=== PATIENT | female | born 1990 | race Caucasian/White ===

== ENCOUNTER 2016-10-21 21:20 | Emergency (ER) | payer MEDICAID, OTHER ==
[2016-10-21 21:37] VITALS: BP 110/65
--- NOTE | 2016-10-21 21:50 | UC ---
Respiratory Complaint HPI - HPI Summary HPI Summary: The patient comes in today for: 1. Cough, sinus pressure/frontal sinuses, rhinitis Onset: 2 days ago. Palliative/provocative: [id number] medications. Quality: Ache Region: Frontal sinuses Severity: 5/10 Time: Constant. Associated symptoms: Cough: productive of green material Rhinitis: Green FEver: No temperature taken. Upper tooth pain: NOne. Chest pain: Only with coughing. Dyspena: None. * - History of Current Complaint Chief Complaint: UCRespiratory Stated Complaint: resp complaint Time Seen by Provider: 10/21/16 21:25 Hx Obtained From: Patient Hx Last Menstrual Period: on birthcontrol-explanon ?: No - Allergies/Home Medications Allergies/Adverse Reactions: Allergies Allergy/AdvReac Type Severity Reaction Status Date / Time Estrogens Allergy Severe See Comment Verified 10/21/16 21:39 Ketorolac Tromethamine Allergy Severe FACIAL Verified 03/27/16 15:15 [From Toradol] REDNESS Amoxicillin [From Augmentin] Allergy Intermediate Rash Verified 10/21/16 21:39 Clavulanic Acid Allergy Intermediate Rash Verified 10/21/16 21:39 [From Augmentin] Codeine AdvReac Mild NIGHTMARES Verified 10/21/16 21:39 Doxycycline AdvReac GI Upset Verified 10/21/16 21:39 hot sauce Allergy Severe "eats skin" Uncoded 10/21/16 21:39 SAUSAGE Allergy Severe THROAT Uncoded 10/21/16 21:39 FEELS LIKE IT CLOSES PMH/Surg Hx/FS Hx/Imm Hx Previously Healthy: No - Hair loss/on spironolactone Endocrine History Of: Denies: Diabetes, Thyroid Disease, Hyperthyroidism, Hypothyroidism, Dyslipidemia Cardiovascular History Of: Denies: Cardiac Disorders, Hypertension, Pacemaker/ICD, Myocardial Infarction , Congestive Heart Failure, Atrial Fibrillation, Deep Vein Thrombosis, Bleeding Disorders Respiratory History Of: Reports: Asthma - As a child Denies: COPD, Bronchitis, Pneumonia, Pulmonary Embolism GI/ History Of: Denies: Gastroesophageal Reflux, Ulcer, Gastrointestinal Bleed, Gall Bladder Disease, Kidney Stones, Diverticulitis, Renal Disease, Urosepsis Neurological History Of: Reports: Seizures - as a child, not on meds Denies: TIA, CVA, Dementia, Migraine Psychological History Of: Reports: Anxiety, Depression Denies: Bipolar Disorder, Schizophrenia, Post Traumatic Stress Disorder Cancer History Of: Denies: Lung Cancer, Colorectal Cancer, Breast Cancer, Prostate Cancer, Cervical Cancer Other History Of: Negative For: HIV, Hepatitis B, Hepatitis C, Anticoagulant Therapy - Surgical History Surgical History: Yes Surgery Procedure, Year, and Place: 13 melanoma scares biopsies; left foot repairs - Family History Known Family History: Positive: Hypertension Negative: Cardiac Disease - Social History Occupation: Employed Full-time Alcohol Use: Rare Substance Use Type: None Smoking Status (MU): Current Every Day Smoker Type: Cigarettes Amount Used/How Often: 10 cigs daily Length of Time of Smoking/Using Tobacco: 11 YEARS Have You Smoked in the Last Year: Yes Review of Systems Constitutional: Negative Skin: Negative Eyes: Negative ENT: Nasal Discharge Respiratory: Cough Cardiovascular: Chest Pain Gastrointestinal: Negative Genitourinary: Negative All Other Systems Reviewed And Are Negative: Yes Physical Exam Triage Information Reviewed: Yes Appearance: Well-Appearing, No Pain Distress, Well-Nourished Vital Signs: Initial Vital Signs Temp 98.6 F 10/21/16 21:26 Pulse 90 10/21/16 21:26 Resp 16 10/21/16 21:26 BP 110/65 10/21/16 21:26 Pulse Ox 98 10/21/16 21:26 Vital Signs Reviewed: Yes Eyes: Positive: Conjunctiva Clear. Negative: Discharge ENT: Positive: Hearing grossly normal, Other: - Frontal sinus tenderness to palpation.. Negative: Pharyngeal erythema, Nasal congestion, Nasal drainage, TM bulging, TM dull, TM red, Tonsillar swelling, Tonsillar exudate Dental: Negative: Gross Decay/Caries @, Dental Fracture @ Neck: Positive: Supple, Nontender, No Lymphadenopathy. Negative: Nuchal Rigidity Respiratory: Positive: Chest non-tender, Lungs clear, No respiratory distress, No accessory muscle use. Negative: Crackles, Rhonchi Cardiovascular: Positive: RRR, No Murmur Abdomen Description: Positive: Nontender, No Organomegaly, Soft. Negative: Distended, Guarding, Peritoneal Signs Musculoskeletal: Positive: Strength Intact, ROM Intact, No Edema Neurological: Positive: Alert, Muscle Tone Normal Psychological: Positive: Age Appropriate Behavior, Consolable Skin: Negative: rashes, breakdown UC Diagnostic Evaluation - Laboratory O2 Sat by Pulse Oximetry: 98 Respiratory Course/Dx - Differential Dx/Diagnosis Differential Diagnosis/HQI/PQRI: Bronchitis, Laryngitis, Sinusitis Provider Diagnoses: Sinusitis. Bronchitis Discharge - Discharge Plan Condition: Stable Disposition: HOME Patient Education Materials: Sinusitis (ED), Acute Bronchitis (ED) Forms: *Work Release Referrals: Josué Harrington MD [Primary Care Provider] - 1 Week (Please see your primary care provider in a week to see how well you are doing. If you get worse, please be seen sooner in the ER or through us.)
[2016-10-21] MEDS ORDERED: Azithromycin TAB* 250 MG PO ONE (21:55)
== END 2016-10-21 22:10 | disposition home or self-care (01) ==
LOC: UCEAST 21:20
DX: J32.9 Chronic sinusitis, unspecified (principal); J40 Bronchitis, not specified as acute or chronic; Z88.1 Allergy status to other antibiotic agents; Z88.5 Allergy status to narcotic agent; Z88.0 Allergy status to penicillin; F17.210 Nicotine dependence, cigarettes, uncomplicated
CPT/HCPCS: 99212; A9270-GY; G0463

== ENCOUNTER 2016-12-21 17:12 | Emergency (ER) | payer OTHER ==
[2016-12-21 17:26] VITALS: BP 125/70
--- NOTE | 2016-12-21 17:57 | UC ---
Lower Extremity/Ankle HPI - HPI Summary HPI Summary: complaint of left foot pain that started approx 2 months surgery 11/21/2015- had reconstructive left foot surgery- rufino - Dr Oconnor denies any recent trauma last week had some swelling in her left foot last night she had more pain in her foot and the pad of her foot is white constant aching pain that is worse with ambulation rest slightly reduces pain not wearing her brace because she lost it not taking any medication for pain and swelling - History of Current Complaint Hx Obtained From: Patient Hx Last Menstrual Period: implanone Onset/Duration: Gradual Onset, Lasting Hours, Still Present Aggravating Factor(s): Standing, Ambulation Alleviating Factor(s): Rest Able to Bear Weight: Yes <Kianna Jane - Last Filed: 12/21/16 18:40> - HPI Summary HPI Summary: I was available for consultation. This patient was seen by mid level provider. The patient was not presented, seen, or examined by me. WR <Gus Pearl - Last Filed: 12/23/16 13:09> - History of Current Complaint Chief Complaint: UCLowerExtremity Stated Complaint: FOOT INJURY Time Seen by Provider: 12/21/16 17:44 - Allergies/Home Medications Allergies/Adverse Reactions: Allergies Allergy/AdvReac Type Severity Reaction Status Date / Time Estrogens Allergy Severe See Comment Verified 10/21/16 21:39 Ketorolac Tromethamine Allergy Severe FACIAL Verified 03/27/16 15:15 [From Toradol] REDNESS Amoxicillin [From Augmentin] Allergy Intermediate Rash Verified 10/21/16 21:39 Clavulanic Acid Allergy Intermediate Rash Verified 10/21/16 21:39 [From Augmentin] Codeine AdvReac Mild NIGHTMARES Verified 10/21/16 21:39 Doxycycline AdvReac GI Upset Verified 10/21/16 21:39 hot sauce Allergy Severe "eats skin" Uncoded 10/21/16 21:39 SAUSAGE Allergy Severe THROAT Uncoded 10/21/16 21:39 FEELS LIKE IT CLOSES PMH/Surg Hx/FS Hx/Imm Hx Previously Healthy: Yes Endocrine History Of: Denies: Diabetes, Thyroid Disease, Hyperthyroidism, Hypothyroidism, Dyslipidemia Cardiovascular History Of: Denies: Cardiac Disorders, Hypertension, Pacemaker/ICD, Myocardial Infarction , Congestive Heart Failure, Atrial Fibrillation, Deep Vein Thrombosis, Bleeding Disorders Respiratory History Of: Reports: Asthma - As a child Denies: COPD, Bronchitis, Pneumonia, Pulmonary Embolism GI/ History Of: Denies: Gastroesophageal Reflux, Ulcer, Gastrointestinal Bleed, Gall Bladder Disease, Kidney Stones, Diverticulitis, Renal Disease, Urosepsis Neurological History Of: Reports: Seizures - as a child, not on meds Denies: TIA, CVA, Dementia, Migraine Psychological History Of: Reports: Anxiety, Depression Denies: Bipolar Disorder, Schizophrenia, Post Traumatic Stress Disorder Cancer History Of: Denies: Lung Cancer, Colorectal Cancer, Breast Cancer, Prostate Cancer, Cervical Cancer Other History Of: Negative For: HIV, Hepatitis B, Hepatitis C, Anticoagulant Therapy - Surgical History Surgical History: Yes Surgery Procedure, Year, and Place: 13 melanoma scares biopsies; left foot repairs - Family History Known Family History: Positive: None, Hypertension Negative: Cardiac Disease - Social History Occupation: Employed Full-time Lives: With Family Alcohol Use: Rare Substance Use Type: None Smoking Status (MU): Light Every Day Tobacco Smoker Type: Cigarettes Amount Used/How Often: 10 cigs daily Length of Time of Smoking/Using Tobacco: 11 YEARS Have You Smoked in the Last Year: Yes Cessation Counseling: Patient Advised to Stop <Kianna Jane - Last Filed: 12/21/16 18:40> Review of Systems Constitutional: Negative Skin: Negative Eyes: Negative ENT: Negative Respiratory: Negative Cardiovascular: Negative Gastrointestinal: Negative Genitourinary: Negative Motor: Negative Neurovascular: Negative Musculoskeletal: Other: - left foot pain Neurological: Negative Psychological: Negative All Other Systems Reviewed And Are Negative: Yes <Kianna Jane - Last Filed: 12/21/16 18:40> Physical Exam Triage Information Reviewed: Yes Appearance: No Pain Distress, Well-Nourished Vital Signs: Initial Vital Signs Temp 97.7 F 12/21/16 17:19 Pulse 98 12/21/16 17:19 Resp 18 12/21/16 17:19 BP 125/70 12/21/16 17:19 Pulse Ox 98 12/21/16 17:19 Vital Signs Reviewed: Yes Eyes: Positive: Conjunctiva Clear ENT: Positive: Pharynx normal, TMs normal Neck: Positive: No Lymphadenopathy Respiratory: Positive: Lungs clear, Normal breath sounds, No respiratory distress Cardiovascular: Positive: RRR, No Murmur, Pulses Normal Abdomen Description: Positive: Nontender, Soft Bowel Sounds: Positive: Present Musculoskeletal: Positive: Other: - slight edema and tenderness in soft tissue of foot and medial side of ankle. Full ROM dorsi/plantar flexion, inversion & eversion. [place] test negative full sensation pulses 2+, cap refill < 2seconds surgical scars Neurological: Positive: Alert, Other: - no neuro deficits in LLE Psychological Exam: Normal Skin Exam: Normal <Kianna Jane - Last Filed: 12/21/16 18:40> Vital Signs: Initial Vital Signs Temp 97.7 F 12/21/16 17:19 Pulse 98 12/21/16 17:19 Resp 18 12/21/16 17:19 BP 125/70 12/21/16 17:19 Pulse Ox 98 12/21/16 17:19 <Gus Pearl - Last Filed: 12/23/16 13:09> Lower Extremity Course/Dx - Course Course Of Treatment: exam completed- negative x-ray. exacerbation of chronic left foot pain post surgery - Differential Dx/Diagnosis Differential Diagnosis/HQI/PQRI: Cellulitis, Contusion, Fracture (Closed), Sprain, Strain Provider Diagnoses: left foot pain- exacerbation of chronic pain post surgery <Kianna Jane - Last Filed: 12/21/16 18:40> Discharge <Kianna Jane - Last Filed: 12/21/16 18:40> <Gus Pearl - Last Filed: 12/23/16 13:09> - Discharge Plan Condition: Stable Disposition: HOME Prescriptions: Meloxicam 7.5 mg PO DAILY #14 tab Patient Education Materials: Chronic Pain (ED), RICE Therapy (ED) Forms: *Work Release Referrals: Josué Harrington MD [Primary Care Provider] - Carroll Oconnor DPM [Doctor of Podiatric Medicine] - Additional Instructions: start meloxicam as directed 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 If your symptoms do not improve please call your primary care provider or return to urgent care
--- NOTE | 2016-12-21 18:29 | RAD ---
HISTORY: Plantar foot pain, left foot COMPARISONS: June 14, 2013 VIEWS: 3, Frontal, lateral, and oblique views of the left foot FINDINGS: BONE DENSITY: Normal. BONES: There has been interval osteotomy and internal fixation of the first metatarsal, fifth metatarsal, and proximal first phalanx. JOINTS: There is no arthropathy. ALIGNMENT: There is no dislocation. SOFT TISSUES: Unremarkable. OTHER FINDINGS: None. IMPRESSION: POST SURGICAL CHANGE. NO ACUTE OSSEOUS INJURY. IF SYMPTOMS PERSIST, RECOMMEND REPEAT IMAGING.
[2016-12-21] MEDS ORDERED: HYDROcodone/ACETAMIN 5-325 MG* 1 TAB PO ONE (18:37)
== END 2016-12-21 18:54 | disposition home or self-care (01) ==
LOC: UCEAST 17:12
DX: G89.28 Other chronic postprocedural pain (principal); M79.672 Pain in left foot; F41.9 Anxiety disorder, unspecified; F33.8 Other recurrent depressive disorders; F17.210 Nicotine dependence, cigarettes, uncomplicated; Z71.6 Tobacco abuse counseling; Z88.1 Allergy status to other antibiotic agents; Z88.6 Allergy status to analgesic agent; Z88.8 Allergy status to other drugs, medicaments and biological substances; Z91.018 Allergy to other foods
CPT/HCPCS: 99212; G0463

== ENCOUNTER 2017-03-12 11:58 | Emergency (ER) | payer OTHER ==
[2017-03-12 12:05] VITALS: BP 102/65
--- NOTE | 2017-03-12 13:49 | UC ---
Skin Complaint HPI - HPI Summary HPI Summary: c/o itching rash with burrowing mederos on hand wrist abdomen and right arm, concerned she has scabies, has tried cortisone cream without much relief - History of Current Complaint Chief Complaint: UCRash Time Seen by Provider: 03/12/17 13:12 Stated Complaint: RASH Hx Obtained From: Patient Hx Last Menstrual Period: implanone ?: No Onset/Duration: Sudden Onset, Lasting Days, Still Present Timing: Constant Onset Severity: Mild Current Severity: Moderate - worse at night Location: Diffuse Character: Redness Aggravating: Nothing Alleviating: Nothing Associated Signs & Symptoms: Positive: Negative Related History: Possible Reaction to: Latex - Allergy/Home Medications Allergies/Adverse Reactions: Allergies Allergy/AdvReac Type Severity Reaction Status Date / Time Estrogens Allergy Severe See Comment Verified 02/28/17 14:03 Ketorolac Tromethamine Allergy Severe FACIAL Verified 02/28/17 14:03 [From Toradol] REDNESS Amoxicillin [From Augmentin] Allergy Intermediate Rash Verified 02/28/17 14:03 Clavulanic Acid Allergy Intermediate Rash Verified 02/28/17 14:03 [From Augmentin] Codeine AdvReac Mild NIGHTMARES Verified 02/28/17 14:03 Doxycycline AdvReac GI Upset Verified 02/28/17 14:03 hot sauce Allergy Severe "eats skin" Uncoded 10/21/16 21:39 SAUSAGE Allergy Severe THROAT Uncoded 10/21/16 21:39 FEELS LIKE IT CLOSES Review of Systems Constitutional: Negative Skin: Rash Eyes: Negative ENT: Negative Respiratory: Negative Cardiovascular: Negative Gastrointestinal: Negative Genitourinary: Negative Motor: Negative Neurovascular: Negative Musculoskeletal: Negative Neurological: Negative Psychological: Negative All Other Systems Reviewed And Are Negative: Yes PMH/Surg Hx/FS Hx/Imm Hx Previously Healthy: Yes - PCOS Psychological History: Depression Other History Of: Negative For: HIV, Hepatitis B, Hepatitis C, Anticoagulant Therapy - Surgical History Surgical History: Yes Surgery Procedure, Year, and Place: 13 melanoma scares biopsies; left foot repairs - Family History Known Family History: Positive: None, Hypertension Negative: Cardiac Disease - Social History Occupation: Employed Full-time Lives: With Family Alcohol Use: Rare Substance Use Type: None Smoking Status (MU): Light Every Day Tobacco Smoker Type: Cigarettes Amount Used/How Often: 10 cigs daily Length of Time of Smoking/Using Tobacco: 11 YEARS Have You Smoked in the Last Year: Yes Household Exposure Type: Cigarettes Cessation Counseling: Patient Advised to Stop Physical Exam Triage Information Reviewed: Yes Appearance: Well-Appearing, No Pain Distress, Well-Nourished Vital Signs: Initial Vital Signs Temp 98.7 F 03/12/17 12:01 Pulse 77 03/12/17 12:01 Resp 18 03/12/17 12:01 BP 102/65 03/12/17 12:01 Pulse Ox 99 03/12/17 12:01 Vital Signs Reviewed: Yes Eye Exam: Normal Eyes: Positive: Conjunctiva Clear ENT Exam: Normal ENT: Positive: Normal ENT inspection, Hearing grossly normal, Pharynx normal. Negative: Nasal congestion, Nasal drainage, Trismus, Muffled/hoarse voice Dental Exam: Normal Neck exam: Normal Neck: Positive: Supple, Nontender, No Lymphadenopathy Respiratory Exam: Normal Respiratory: Positive: Chest non-tender, No respiratory distress, No accessory muscle use Cardiovascular Exam: Normal Cardiovascular: Positive: RRR, Pulses Normal, Brisk Capillary Refill Musculoskeletal Exam: Normal Musculoskeletal: Positive: Strength Intact, ROM Intact, No Edema Neurological Exam: Normal Neurological: Positive: Alert Psychological Exam: Normal Skin Exam: Normal Skin: Positive: rashes - some burroes---some areas of vesicular rash Course/Dx - Course Course Of Treatment: Ivermectin (pat request over Elimite) steroid cream, benadryl, follow with pcp prn - Differential Diagnoses - Skin Complaint Differential Diagnoses: Contact Dermatitis, Local Allergic Reaction, Scabies, Tinea - Diagnoses Provider Diagnoses: scabies, nicotine dependent Discharge - Discharge Plan Condition: Stable Disposition: HOME Prescriptions: Fluocinonide 0.05% CM (NF) [Lidex 0.05% CREAM (NF)] 1 applic TOPICAL BID #60 gm Ivermectin (NF) [Stromectol (NF)] 12 mg PO SEE INSTRUCTIONS #20 tab Patient Education Materials: Diphenhydramine (By mouth), Ivermectin (By mouth) , Scabies (ED) Referrals: Josué Harrington MD [Primary Care Provider] - If Needed
== END 2017-03-12 13:45 | disposition home or self-care (01) ==
LOC: UCEAST 11:58
DX: B86 Scabies (principal); F17.210 Nicotine dependence, cigarettes, uncomplicated
CPT/HCPCS: 99212; G0463

== ENCOUNTER 2017-05-06 23:04 | Emergency (ER) | payer OTHER ==
[2017-05-07] MEDS ORDERED: HYDROcodone/ACETAMIN 5-325 MG* 1 TAB PO ONE (01:19)
--- NOTE | 2017-05-07 02:39 | ED ---
Upper Extremity Pain - HPI Summary HPI Summary: 26 y/o female s/p injury to R shoulder, R elbow. 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 Immediate shoulder pain, radiating into scapula/ back, neck, elbow pain radiating into forearm. no apin with moving arm with elbow at side, however + pain with lifting elbow out. muslce tightness, soreness, patient states muslce pain in past has been helped by [facility] and is requesting this. h/ o neck strains in past. no loss of stength, no numbness/ tingling. - History of Current Complaint Chief Complaint: EDExtremityUpper Stated Complaint: RIGHT ARM INJURY FROM WORK Time Seen by Provider: 05/07/17 01:09 Hx Obtained From: Patient Hx Last Menstrual Period: implanone Mechanism Of Injury: Direct Blow Onset/Duration: Started Minutes Ago Timing: Constant Severity Initially: Moderate Severity Currently: Moderate Pain Location: Shoulder, Elbow Character: Sharp, Aching, Throbbing Aggravating Factor(s): Movement, Lifting, Flexion, Extension, Abduction, Adduction Alleviating Factor(s): Rest Associated Signs & Symptoms: Positive: Neck Pain - Allergies/Home Medications Allergies/Adverse Reactions: Allergies Allergy/AdvReac Type Severity Reaction Status Date / Time Estrogens Allergy Severe See Comment Verified 02/28/17 14:03 Ketorolac Tromethamine Allergy Severe FACIAL Verified 02/28/17 14:03 [From Toradol] REDNESS Amoxicillin [From Augmentin] Allergy Intermediate Rash Verified 02/28/17 14:03 Clavulanic Acid Allergy Intermediate Rash Verified 02/28/17 14:03 [From Augmentin] Codeine AdvReac Mild NIGHTMARES Verified 02/28/17 14:03 Doxycycline AdvReac GI Upset Verified 02/28/17 14:03 hot sauce Allergy Severe "eats skin" Uncoded 10/21/16 21:39 SAUSAGE Allergy Severe THROAT Uncoded 10/21/16 21:39 FEELS LIKE IT CLOSES PMH/Surg Hx/FS Hx/Imm Hx Previously Healthy: Yes Endocrine/Hematology History: Denies: Hx Anticoagulant Therapy, Hx Diabetes, Hx Thyroid Disease Cardiovascular History: Denies: Hx Congestive Heart Failure, Hx Deep Vein Thrombosis, Hx Hypertension , Hx Myocardial Infarction, Hx Pacemaker/ICD Respiratory History: Reports: Hx Asthma - As a child Denies: Hx Chronic Obstructive Pulmonary Disease (COPD), Hx Lung Cancer, Hx Pneumonia, Hx Pulmonary Embolism GI History: Denies: Hx Gall Bladder Disease, Hx Gastrointestinal Bleed, Hx Ulcer, Hx Urosepsis History: Denies: Hx Kidney Stones, Hx Renal Disease Musculoskeletal History: Denies: Hx Rheumatoid Arthritis Sensory History: Denies: Hx Contacts or Glasses, Hx Hearing Aid Opthamlomology History: Denies: Hx Contacts or Glasses Neurological History: Reports: Hx Seizures - as a child, not on meds Denies: Hx Dementia, Hx Migraine, Hx Transient Ischemic Attacks (TIA) Psychiatric History: Reports: Hx Anxiety, Hx Depression Denies: Hx Panic Disorder, Hx Schizophrenia, Hx Bipolar Disorder - Cancer History Cancer Type, Location and Year: none - Surgical History Surgery Procedure, Year, and Place: 13 melanoma scares biopsies; left foot repairs - Immunization History Date of Tetanus Vaccine: 4 years ago Date of Influenza Vaccine: none wants to follow up with PCP Infectious Disease History: No Infectious Disease History: Denies: Hx Clostridium Difficile, Hx Hepatitis, Hx Human Immunodeficiency Virus (HIV), Hx of Known/Suspected MRSA, Hx Shingles, Hx Tuberculosis, Hx Known/ Suspected VRE, Hx Known/Suspected VRSA, History Other Infectious Disease, Traveled Outside the [place] in Last 30 Days - Family History Known Family History: Positive: None, Hypertension Negative: Cardiac Disease - Social History Alcohol Use: Rare Substance Use Type: Reports: None Smoking Status (MU): Light Every Day Tobacco Smoker Type: Cigarettes Amount Used/How Often: 10 cigs daily Length of Time of Smoking/Using Tobacco: 11 YEARS Have You Smoked in the Last Year: Yes Review of Systems Constitutional: Negative Eyes: Negative Cardiovascular: Negative Respiratory: Negative Positive: Arthralgia, Myalgia, Decreased ROM, Edema All Other Systems Reviewed And Are Negative: Yes Physical Exam Triage Information Reviewed: Yes Vital Signs On Initial Exam: Initial Vitals Temp Pulse Resp Pulse Ox 97.6 F 86 16 97 05/06/17 23:16 05/06/17 23:16 05/06/17 23:16 05/06/17 23:16 Vital Signs Reviewed: Yes Appearance: Positive: Well-Appearing, No Pain Distress - at rest no pain, moderate pain with movement of L UE, Pain Distress - moderate pain with movement R shoudler Skin: Positive: Warm Neck: Positive: Supple, No Lymphadenopathy, Other: - tenderness to palpation over paraspinal muslces L side extending down trap L sided, no muscle spasm Musculoskeletal: Positive: Pain @ - diffuse R elbow, diffuse R shoulder. 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 non tender over wrist, hand. + tenderness over elbow diffusely, no pain with sup, pronataion. full PROM of R elbow, strength decreased R elbow d/t pain 3/5, strength decreased R shoulder d/ t pain, 3/5, PROM flex= 120, abd= 100, AROM flex- 80, abd- 80, rad/ ulnar pulses 2+ R UE, Neurological: Positive: Normal, Sensory/Motor Intact Diagnostics - Vital Signs Vital Signs Temp Pulse Resp BP Pulse Ox 05/06/17 23:20 97.3 F 90 16 120/71 100 05/06/17 23:16 97.6 F 86 16 97 - Laboratory Lab Statement: Any lab studies that have been ordered have been reviewed, and results considered in the medical decision making process. Course/Dx - Course Course Of Treatment: radiograph shoulder, elbow negative sling, RICE< follow up with ortho, pain management - Diagnoses Differential Diagnosis/HQI/PQRI: Positive: Fracture (Closed), Laceration, Strain , Sprain Provider Diagnoses: Shoulder sprain, Elbow strain Discharge - Discharge Plan Condition: Stable Disposition: HOME Prescriptions: oxyCODONE/Acetamin 5/325 MG* [Percocet 5/325 TAB*] 1 tab PO Q4H PRN #20 tab MDD 6 PRN Reason: Pain Patient Education Materials: Shoulder Sprain (ED), Elbow Sprain (ED), RICE Therapy (ED) Forms: *Work Release Referrals: Josué Harrington MD [Primary Care Provider] - Additional Instructions: - Sling for comfort - Follow up with orthopedist within 5-7 days - move arm from sling at least 4 times a day with gentle stretching - poercocet as needed for severe pain, tylenol/acetaminophen (do not take more thatn 4000mg a day) or motrin for pain
[2017-05-07 02:45] VITALS: BP 112/68
--- NOTE | 2017-05-07 09:54 | RAD ---
Indication: Right elbow injury. 4 views of the right elbow demonstrates no fracture. No other bone or joint abnormality is identified. IMPRESSION: No fracture of the right elbow is noted.
--- NOTE | 2017-05-07 09:55 | RAD ---
Indication: Right shoulder injury. 3 views of the right shoulder demonstrates no fracture. No other bone or joint abnormality is identified. IMPRESSION: No fracture of the right shoulder is noted.
== END 2017-05-07 02:45 | disposition home or self-care (01) ==
LOC: ED 23:04
DX: S43.401A Unspecified sprain of right shoulder joint, initial encounter (principal); S46.811A Strain of other muscles, fascia and tendons at shoulder and upper arm level, right arm, initial encounter; W22.8XXA Striking against or struck by other objects, initial encounter; Y99.0 Civilian activity done for income or pay; Z88.1 Allergy status to other antibiotic agents; Z88.8 Allergy status to other drugs, medicaments and biological substances; F17.210 Nicotine dependence, cigarettes, uncomplicated
CPT/HCPCS: 99282

== ENCOUNTER 2017-05-10 14:43 | Emergency (ER) | payer OTHER ==
[2017-05-10 15:10] VITALS: BP 111/74
--- NOTE | 2017-05-10 16:48 | UC ---
Shoulder Pain HPI - HPI Summary HPI Summary: INJURY TO RIGHT SHOULDER AND RIGHT ELBOW ON 05/06/17. WAS DIAGNOSED WITH RIGHT ELBOW SPRAIN, RIGHT SHOULDER SPRAIN AND TAKEN OFF OF WORK. IS FEELING SOMEWHAT BETTER AND WOULD LIKE TO RETURN TO WORK. - History of Current Complaint Chief Complaint: UCUpperExtremity Stated Complaint: ARM INJURY Time Seen by Provider: 05/10/17 16:10 Hx Obtained From: Patient, Family/Sample Coordinator Hx Last Menstrual Period: bcp Onset/Duration: Sudden Onset, Lasting Days, Still Present Severity Initially: Moderate Character: Spasmodic Aggravating Factor(s): Movement, Lifting, Flexion Related History: Dominant Hand Right - Risk Factors Non-Orthopedic Risk Factor: Negative DVT Risk Factors: Negative Septic Arthritis Risk Factor: Negative - Allergies/Home Medications Allergies/Adverse Reactions: Allergies Allergy/AdvReac Type Severity Reaction Status Date / Time Estrogens Allergy Severe See Comment Verified 02/28/17 14:03 Ketorolac Tromethamine Allergy Severe FACIAL Verified 02/28/17 14:03 [From Toradol] REDNESS Amoxicillin [From Augmentin] Allergy Intermediate Rash Verified 02/28/17 14:03 Clavulanic Acid Allergy Intermediate Rash Verified 02/28/17 14:03 [From Augmentin] Codeine AdvReac Mild NIGHTMARES Verified 02/28/17 14:03 Doxycycline AdvReac GI Upset Verified 02/28/17 14:03 hot sauce Allergy Severe "eats skin" Uncoded 10/21/16 21:39 SAUSAGE Allergy Severe THROAT Uncoded 10/21/16 21:39 FEELS LIKE IT CLOSES PMH/Surg Hx/FS Hx/Imm Hx Previously Healthy: Yes Other History Of: Negative For: HIV, Hepatitis B, Hepatitis C, Anticoagulant Therapy - Surgical History Surgical History: Yes Surgery Procedure, Year, and Place: 13 surgeries melanoma scares biopsies; left foot repairs - Family History Known Family History: Positive: None, Hypertension Negative: Cardiac Disease - Social History Occupation: Employed Full-time Lives: With Family Alcohol Use: Rare Substance Use Type: None Smoking Status (MU): Light Every Day Tobacco Smoker Type: Cigarettes Amount Used/How Often: 10 cigs daily Length of Time of Smoking/Using Tobacco: 11 YEARS Have You Smoked in the Last Year: Yes Household Exposure Type: Cigarettes Review of Systems Constitutional: Negative Skin: Negative Eyes: Negative ENT: Negative Respiratory: Negative Cardiovascular: Negative Gastrointestinal: Negative Genitourinary: Negative Motor: Negative Neurovascular: Negative Musculoskeletal: Arthralgia, Myalgia Neurological: Negative Psychological: Negative All Other Systems Reviewed And Are Negative: Yes Physical Exam Triage Information Reviewed: Yes Appearance: Well-Appearing, No Pain Distress, Well-Nourished Vital Signs: Initial Vital Signs Temp 99 F 05/10/17 15:05 Pulse 94 05/10/17 15:05 Resp 16 05/10/17 15:05 BP 111/74 05/10/17 15:05 Pulse Ox 100 05/10/17 15:05 Vital Signs Reviewed: Yes Eye Exam: Normal ENT Exam: Normal ENT: Positive: Normal ENT inspection, Hearing grossly normal, TMs normal Dental Exam: Normal Neck exam: Normal Neck: Positive: Supple, Nontender, No Lymphadenopathy Respiratory Exam: Normal Respiratory: Positive: Chest non-tender, Lungs clear, Normal breath sounds, No respiratory distress Cardiovascular Exam: Normal Cardiovascular: Positive: RRR, No Murmur, Pulses Normal Abdominal Exam: Normal Abdomen Description: Positive: Nontender, No Organomegaly Musculoskeletal: Positive: Strength Intact, ROM Intact, No Edema Neurological Exam: Normal Psychological Exam: Normal Skin Exam: Normal Shoulder Course/Dx - Differential Dx/Diagnosis Differential Diagnosis/HQI/PQRI: Sprain, Strain Provider Diagnoses: RIGHT SHOULDER SPRAIN. RIGHT ELBOW STRAIN. INJURIES ARE SHOWING IMPROVEMENT BASED ON ARIK'S SUBJECTIVE REPORT. Discharge - Discharge Plan Condition: Stable Disposition: HOME Patient Education Materials: Muscle Strain (ED), Shoulder Sprain (ED) Forms: *Work Release Referrals: [facility] [Outside] Josué Harrington MD [Primary Care Provider] - Additional Instructions: PHYSICAL THERAPY REFERRAL: You have been prescribed physical therapy. Treatments may include stretching, exercise, application of heat or cold, and other modalities. After an injury, PT can reduce swelling and pain. In recovery, PT is used to restore mobility and strength. Your specific treatment goals are: __X___ Reduction of Swelling (EGS, US, ice as needed) __X___ Pain Reduction (EGS, US, ice as needed) __X___ TENS Pack Fitting and Instruction Wound Hydrotherapy __X___ Preservation of Mobility ___X__ Confucianist of Mobility ___X__ Strength Confucianist ___X__ Work or Sports Hardening This instruction sheet also serves as your PHYSICAL THERAPY REFERRAL! Please take it with you to the therapist, so he/she will be aware of your diagnosis and treatment plan. You may see the physical therapist of your choice for these treatments, but may wish to check with your insurance to be sure the provider you select is covered. It's important to see the doctor to whom you have been referred for follow up.
== END 2017-05-10 16:45 | disposition home or self-care (01) ==
LOC: UCEAST 14:43
DX: S43.401D Unspecified sprain of right shoulder joint, subsequent encounter (principal); S53.401D Unspecified sprain of right elbow, subsequent encounter; X58.XXXD Exposure to other specified factors, subsequent encounter; Z88.1 Allergy status to other antibiotic agents; Z88.5 Allergy status to narcotic agent; F17.210 Nicotine dependence, cigarettes, uncomplicated
CPT/HCPCS: 99212; G0463

== ENCOUNTER 2017-12-15 21:27 | Emergency (ER) | payer SELFPAY ==
[2017-12-15 21:46] VITALS: BP 127/77
--- NOTE | 2017-12-15 22:02 | UC ---
Sheron Shepherd Gabriel, scribed for Gus Pearl MD on 12/15/17 at 2153 . General HPI - HPI Summary HPI Summary: This patient is a 27 year old F presenting to [facility] [place] accompanied by her family with a chief complaint of cold symptoms. Pt was seen on 12-12-17 for the same symptoms and has taken a Zpack. The patient rates the pain 4/10 in severity. Patient reports diarrhea, nausea, cough, diaphoresis, chest heaviness, back pain , and dark urine. Patient denies blood In her stool and vomiting. - History of Current Complaint Chief Complaint: UCBackPain Stated Complaint: BACK PAIN, AND CHEST CONGESTION Time Seen by Provider: 12/15/17 21:38 Hx Obtained From: Patient Hx Last Menstrual Period: 11/1117 Onset/Duration: Still Present Timing: Constant Onset Severity: Moderate Current Severity: Moderate Pain Intensity: 4 Associated Signs & Symptoms: Positive: Other - diarrhea, nausea, cough, diaphoresis, chest heaviness, back pain, and dark urine. - Allergy/Home Medications Allergies/Adverse Reactions: Allergies Allergy/AdvReac Type Severity Reaction Status Date / Time amoxicillin [From Augmentin] Allergy Rash Verified 12/15/17 21:51 clavulanic acid Allergy Rash Verified 12/15/17 21:51 [From Augmentin] codeine Allergy See Comment Verified 12/15/17 21:51 doxycycline Allergy GI Upset Verified 12/15/17 21:51 Estrogens Allergy See Comment Verified 12/15/17 21:51 ketorolac Allergy Facial Verified 12/15/17 21:51 Redness/Flushing hot sauce Allergy Severe "eats skin" Uncoded 10/21/16 21:39 SAUSAGE Allergy Severe THROAT Uncoded 10/21/16 21:39 FEELS LIKE IT CLOSES PMH/Surg Hx/FS Hx/Imm Hx Respiratory History: Asthma Other History Of: Negative For: HIV, Hepatitis B, Hepatitis C, Anticoagulant Therapy - Surgical History Surgical History: Yes Surgery Procedure, Year, and Place: 13 surgeries melanoma scares biopsies; left foot repairs - Family History Known Family History: Positive: Hypertension Negative: Cardiac Disease - Social History Lives: With Family Alcohol Use: Rare Substance Use Type: None Smoking Status (MU): Heavy Every Day Tobacco Smoker Type: Cigarettes Amount Used/How Often: 10 cigs daily Length of Time of Smoking/Using Tobacco: 11 YEARS Have You Smoked in the Last Year: Yes Household Exposure Type: Cigarettes Review of Systems Constitutional: Other - sweating Respiratory: Cough Cardiovascular: Chest Pain Gastrointestinal: Diarrhea, Nausea, Other - dark urine Musculoskeletal: Other: - back pain All Other Systems Reviewed And Are Negative: Yes Physical Exam - Summary Physical Exam Summary: VITAL SIGNS: Reviewed. GENERAL: Patient is a well developed and nourished F who is lying comfortable in the stretcher. Patient is not in any acute respiratory distress. HEAD AND FACE: Normocephalic EYES: PERRLA, EOMI x 2. EARS: Hearing grossly intact. MOUTH: Oropharynx within normal limits. NECK: Supple, trachea is midline, no adenopathy, no JVD, no carotid bruit. CHEST: Symmetric, no tenderness at palpation LUNGS: Clear to auscultation bilaterally. No wheezing or crackles. CVS: tachycardia, S1 and S2 present, no murmurs or gallops appreciated. ABDOMEN: Soft, non-tender. Bowel sounds are normal. No abdominal abnormal pulsations. EXTREMITIES: Full ROM in all major joints, no edema, no cyanosis or clubbing. NEURO: Alert and oriented x 3. No acute neurological deficits. Speech is normal and follows commands. SKIN: Dry and warm Triage Information Reviewed: Yes Vital Signs: Initial Vital Signs Temp 98.8 F 12/15/17 21:32 Pulse 134 12/15/17 21:32 Resp 16 12/15/17 21:32 BP 127/77 12/15/17 21:32 Pulse Ox 99 12/15/17 21:32 Vital Signs Reviewed: Yes Diagnostics - EKG Cardiac Rate: Tachycardia - taken at 2144 Cardiac Rhythm: Sinus: Normal - at 126 BPM , Other Rhythm: New - no STEMI, normal axis Course/Dx - Course Course Of Treatment: EKG reveals sinus tachycardia. Due to patients chest pain and tachycardia I informed her she needed a more in-depth work out that cannot be done here.I discussed all the findings and test results with the patient. Patient was instructed to report directed to the ED. I suggested she take an ambulance but she declined. Plan of care was discussed with the patient, and patient understands and agrees. All questions were answered to patient satisfaction. There were no further complaints or concerns. The patient was found to have increased BP in UC. The patient will follow up with PCP for better control of BP. - Differential Dx - Multi-Symptom Provider Diagnoses: Elevated blood pressure without a previous diagnoses of hypertension, chest pain, tachycardia Discharge - Sign-Out/Discharge Documenting (check all that apply): Discharge - Discharge Plan Condition: Stable Disposition: HOME Patient Education Materials: Chest Pain (ED), Tachycardia (ED) Referrals: Josué Harrington MD [Primary Care Provider] - Additional Instructions: Elevated blood pressure without a previous diagnoses of hypertension The documentation as recorded by the Sheron durant Gabriel accurately reflects the service I personally performed and the decisions made by Dae diego Walter, MD.
== END 2017-12-15 22:03 | disposition home or self-care (01) ==
LOC: UCEAST 21:27
DX: R07.89 Other chest pain (principal); R00.0 Tachycardia, unspecified; R03.0 Elevated blood-pressure reading, without diagnosis of hypertension; J45.909 Unspecified asthma, uncomplicated; Z88.1 Allergy status to other antibiotic agents; F17.210 Nicotine dependence, cigarettes, uncomplicated
CPT/HCPCS: 93005; 99212; G0463

== ENCOUNTER 2017-12-15 22:26 | Emergency (ER) | payer SELFPAY ==
[2017-12-15 23:51] LABS: Hematocrit 43 % (35-47); Hemoglobin 14.8 g/dl (12.0-16.0); Mean Corpuscular HGB Conc 35 g/dl (31-36); Mean Corpuscular Hemoglobin 32 pg (27-31); Mean Corpuscular Volume 91 fL (80-97); Mean Platelet Volume 8.4 um3 (7.4-10.4); Platelet Count 231 10^3/ul (150-450); Red Blood Count 4.68 10^6/ul (4.0-5.4); Red Cell Distribution Width 13 % (10.5-15); White Blood Count 10.3 10^3/ul (3.5-10.8)
[2017-12-16 00:03] LABS: EGFR Non-African American 70.4 (>60)
[2017-12-16 00:27] LABS: ABS Basophils 0.1 10^3/ul (0-0.2); ABS Eosinophils 0.1 10^3/ul (0-0.6); ABS Lymphocytes 5.7 10^3/ul (1.0-4.8); ABS Monocytes 0.7 10^3/ul (0-0.8); ABS Neutrophils 3.7 10^3/ul (1.5-7.7); ABS Nucleated RBC 0 10^3/ul; Eosinophil % 1.4 % (0-6); Nucleated Red Blood Cells % 0.4
[2017-12-16] MEDS ORDERED: traMADol TAB* 50 MG PO ONE (01:28)
[2017-12-16] MEDS ORDERED: methylPREDNISolone SOD 40 MG* 1 ML VIAL IV ONE (01:28)
[2017-12-16] MEDS ORDERED: Iohexol 350* (CONTRAST) 500 ML MDV IV ONE (01:59)
[2017-12-16 03:20] VITALS: BP 101/47
[2017-12-16] MEDS ORDERED: predniSONE TAB* 20 MG PO ONE (03:24)
--- NOTE | 2017-12-16 07:30 | RAD ---
INDICATION: Chest pain. COMPARISON: There are no prior studies available for comparison. TECHNIQUE: Dual-energy PA and lateral views of the chest were obtained. FINDINGS: The heart is within normal limits in size. Mediastinal and hilar contours appear within normal limits. The stomach appears distended and filled with air. There is elevation of the left hemidiaphragm. The lungs are clear. No pleural effusion is seen. IMPRESSION: NO EVIDENCE FOR ACTIVE CARDIOPULMONARY DISEASE.
--- NOTE | 2017-12-16 10:37 | RAD ---
INDICATION: Chest pain. COMPARISON: Comparison is made with prior chest x-ray study from December 15, 2017. TECHNIQUE: A CT angiogram of the chest was performed with intravenous following intravenous injection of 70 ml of Omnipaque 350 nonionic contrast. Contiguous axial sections were obtained from the lung apices through the lung bases. Images were reconstructed in the coronal and sagittal planes. FINDINGS: There is relatively homogeneous opacification of the pulmonary arteries. No intraluminal filling defect or pulmonary embolism is seen. The heart is within normal limits in size. No pericardial effusion is present. The thoracic aorta is normal in caliber and demonstrates homogeneous contrast opacification. There is increased soft tissue density in the anterior mediastinum most consistent with residual thymus tissue. There is a mildly prominent left hilar lymph node measuring 1.2 cm. No significant enlarged mediastinal lymph nodes are seen. There are few scattered dependent bilateral lower lobe groundglass infiltrates suggestive of atelectasis. No pleural effusion or pneumothorax is seen. There is a small hiatal hernia present. No significant focal osseous abnormality is seen. IMPRESSION: 1. NO EVIDENCE FOR PULMONARY EMBOLISM. 2. BILATERAL LOWER LOBE GROUNDGLASS INFILTRATES SUGGESTIVE OF ATELECTASIS. 3. MILDLY PROMINENT LEFT HILAR LYMPH NODE.
--- NOTE | 2017-12-16 17:26 | ED ---
Molina Shepherd Stephanie, scribed for Aaron Fagan MD on 12/16/17 at 0133 . HPI Chest Pain - HPI Summary HPI Summary: The pt is a 27 y/o F presenting to the ED with c/o CP that began on 12/12/17. Symptoms include productive cough (clear mucus). She denies SOB. Aggravating factors include sitting up and movement. The pt states she believed she had a cold until she began to feel heaviness over her chest. The pt reports completing a z-pack with no symptom relief. - History of Current Complaint Chief Complaint: EDChestWallPain Time Seen by Provider: 12/16/17 01:00 Hx Obtained From: Patient Hx Last Menstrual Period: 11/1117 Onset/Duration: Started Days Ago - 4, Still Present Timing: Constant Current Severity: Moderate Pain Intensity: 9 Pain Scale Used: 0-10 Numeric Chest Pain Location: Diffuse Chest Pain Radiates: No Character: Heaviness Aggravating Factor(s): Position, Movement Alleviating Factor(s): Nothing Associated Signs and Symptoms: Positive: Chest Pain, Productive Cough. Negative : Shortness of Breath - Allergy/Home Medications Allergies/Adverse Reactions: Allergies Allergy/AdvReac Type Severity Reaction Status Date / Time amoxicillin [From Augmentin] Allergy Rash Verified 12/15/17 21:51 clavulanic acid Allergy Rash Verified 12/15/17 21:51 [From Augmentin] codeine Allergy See Comment Verified 12/15/17 21:51 doxycycline Allergy GI Upset Verified 12/15/17 21:51 Estrogens Allergy See Comment Verified 12/15/17 21:51 ketorolac Allergy Facial Verified 12/15/17 21:51 Redness/Flushing hot sauce Allergy Severe "eats skin" Uncoded 10/21/16 21:39 SAUSAGE Allergy Severe THROAT Uncoded 10/21/16 21:39 FEELS LIKE IT CLOSES PMH/Surg Hx/FS Hx/Imm Hx Endocrine/Hematology History: Denies: Hx Anticoagulant Therapy, Hx Diabetes, Hx Thyroid Disease Cardiovascular History: Denies: Hx Congestive Heart Failure, Hx Deep Vein Thrombosis, Hx Hypertension , Hx Myocardial Infarction, Hx Pacemaker/ICD Respiratory History: Reports: Hx Asthma - As a child Denies: Hx Chronic Obstructive Pulmonary Disease (COPD), Hx Lung Cancer, Hx Pneumonia, Hx Pulmonary Embolism GI History: Denies: Hx Gall Bladder Disease, Hx Gastrointestinal Bleed, Hx Ulcer, Hx Urosepsis History: Denies: Hx Kidney Stones, Hx Renal Disease Musculoskeletal History: Denies: Hx Rheumatoid Arthritis Sensory History: Denies: Hx Contacts or Glasses, Hx Hearing Aid Opthamlomology History: Denies: Hx Contacts or Glasses Neurological History: Reports: Hx Seizures - as a child, not on meds Denies: Hx Dementia, Hx Migraine, Hx Transient Ischemic Attacks (TIA) Psychiatric History: Reports: Hx Anxiety, Hx Depression Denies: Hx Panic Disorder, Hx Schizophrenia, Hx Bipolar Disorder - Cancer History Cancer Type, Location and Year: none - Surgical History Surgery Procedure, Year, and Place: 13 surgeries melanoma scares biopsies; left foot repairs - Immunization History Date of Tetanus Vaccine: 4 years ago Date of Influenza Vaccine: none wants to follow up with PCP Infectious Disease History: No Infectious Disease History: Denies: Hx Clostridium Difficile, Hx Hepatitis, Hx Human Immunodeficiency Virus (HIV), Hx of Known/Suspected MRSA, Hx Shingles, Hx Tuberculosis, Hx Known/ Suspected VRE, Hx Known/Suspected VRSA, History Other Infectious Disease, Traveled Outside the [place] in Last 30 Days - Family History Known Family History: Positive: Hypertension Negative: Cardiac Disease - Social History Occupation: Employed Full-time Lives: Alone Alcohol Use: Rare Substance Use Type: Reports: None Smoking Status (MU): Heavy Every Day Tobacco Smoker Type: Cigarettes Amount Used/How Often: 10 cigs daily Length of Time of Smoking/Using Tobacco: 11 YEARS Have You Smoked in the Last Year: Yes Review of Systems Negative: Fever Positive: Chest Pain - heaviness Positive: Cough. Negative: Shortness Of Breath All Other Systems Reviewed And Are Negative: Yes Physical Exam - Summary Physical Exam Summary: Appearance: Well-appearing, no distress, Well-nourished Skin: Warm, color reflects adequate perfusion Head: Normal Head/Face inspection Eyes: Conjunctiva clear ENT: Normal inspection Neck: Supple, no nodes, no JVD. Respiratory: Lungs clear, Normal breath sounds, no respiratory distress; no w/r/ r Cardio: RRR, No murmur, pulses normal, brisk capillary refill Abdomen: soft, nontender, no guarding, no rebound Bowel sounds: present Musculoskeletal: Strength Intact/ ROM intact. No calf tenderness. No edema. Neuro: Alert, muscle tone normal, facial symmetry, speech normal, sensory/motor intact Psychological: Normal Triage Information Reviewed: Yes Vital Signs On Initial Exam: Initial Vitals Temp Pulse Resp BP Pulse Ox 98.7 F 110 16 131/82 99 12/15/17 22:29 18 22:29 18 22:29 12/15/17 22:29 12/15/17 22:29 Vital Signs Reviewed: Yes Diagnostics - Vital Signs Vital Signs Temp Pulse Resp BP Pulse Ox 12/15/17 22:29 98.7 F 110 16 131/82 99 - Laboratory Lab Results: Lab Results 12/15/17 12/15/17 12/15/17 Range/Units 23:04 23:04 23:04 WBC 10.3 (3.5-10.8) 10^3/ul RBC 4.68 (4.0-5.4) 10^6/ul Hgb 14.8 (12.0-16.0) g/dl Hct 43 (35-47) % MCV 91 (80-97) fL MCH 32 H (27-31) pg MCHC 35 (31-36) g/dl RDW 13 (10.5-15) % Plt Count 231 (150-450) 10^3/ul MPV 8.4 (7.4-10.4) um3 Neut % (Auto) 36.1 L (38-83) % Lymph % (Auto) 55.0 H (25-47) % [place] % (Auto) 6.9 (0-7) % Eos % (Auto) 1.4 (0-6) % Baso % (Auto) 0.6 (0-2) % Absolute Neuts (auto) 3.7 (1.5-7.7) 10^3/ul Absolute Lymphs (auto) 5.7 H (1.0-4.8) 10^3/ul Absolute Monos (auto) 0.7 (0-0.8) 10^3/ul Absolute Eos (auto) 0.1 (0-0.6) 10^3/ul Absolute Basos (auto) 0.1 (0-0.2) 10^3/ul Absolute Nucleated RBC 0 10^3/ul Nucleated RBC % 0.4 D-Dimer, Quantitative > 1050 H (Less Than 230) ng/mL Sodium 134 (133-145) mmol/L Potassium TNP Chloride 102 (101-111) mmol/L Carbon Dioxide 25 (22-32) mmol/L Anion Gap 7 (2-11) mmol/L BUN 17 (6-24) mg/dL Creatinine 0.94 (0.51-0.95) mg/dL Est GFR ( Amer) 90.5 (>60) Est GFR (Non-Af Amer) 70.4 (>60) BUN/Creatinine Ratio 18.1 (8-20) Glucose 94 (70-100) mg/dL Lactic Acid (0.5-2.0) mmol/L Calcium 9.5 (8.6-10.3) mg/dL Total Bilirubin 0.60 (0.2-1.0) mg/dL AST TNP ALT 32 (7-52) U/L Alkaline Phosphatase 58 (34-104) U/L Troponin I 0.00 (<0.04) ng/mL Total Protein 7.4 (6.4-8.9) g/dL Albumin 4.1 (3.2-5.2) g/dL Globulin 3.3 (2-4) g/dL Albumin/Globulin Ratio 1.2 (1-3) Beta HCG, Quant Pending 12/15/17 12/16/17 Range/Units 23:04 00:13 WBC (3.5-10.8) 10^3/ul RBC (4.0-5.4) 10^6/ul Hgb (12.0-16.0) g/dl Hct (35-47) % MCV (80-97) fL MCH (27-31) pg MCHC (31-36) g/dl RDW (10.5-15) % Plt Count (150-450) 10^3/ul MPV (7.4-10.4) um3 Neut % (Auto) (38-83) % Lymph % (Auto) (25-47) % [place] % (Auto) (0-7) % Eos % (Auto) (0-6) % Baso % (Auto) (0-2) % Absolute Neuts (auto) (1.5-7.7) 10^3/ul Absolute Lymphs (auto) (1.0-4.8) 10^3/ul Absolute Monos (auto) (0-0.8) 10^3/ul Absolute Eos (auto) (0-0.6) 10^3/ul Absolute Basos (auto) (0-0.2) 10^3/ul Absolute Nucleated RBC 10^3/ul Nucleated RBC % D-Dimer, Quantitative (Less Than 230) ng/mL Sodium (133-145) mmol/L Potassium 4.1 Chloride (101-111) mmol/L Carbon Dioxide (22-32) mmol/L Anion Gap (2-11) mmol/L BUN (6-24) mg/dL Creatinine (0.51-0.95) mg/dL Est GFR ( Amer) (>60) Est GFR (Non-Af Amer) (>60) BUN/Creatinine Ratio (8-20) Glucose (70-100) mg/dL Lactic Acid 0.9 (0.5-2.0) mmol/L Calcium (8.6-10.3) mg/dL Total Bilirubin (0.2-1.0) mg/dL AST 29 ALT (7-52) U/L Alkaline Phosphatase (34-104) U/L Troponin I (<0.04) ng/mL Total Protein (6.4-8.9) g/dL Albumin (3.2-5.2) g/dL Globulin (2-4) g/dL Albumin/Globulin Ratio (1-3) Beta HCG, Quant Result Diagrams: 12/15/17 23:04 12/16/17 00:13 Lab Statement: Any lab studies that have been ordered have been reviewed, and results considered in the medical decision making process. - CT CTA Chest CT Interpretation: No Acute Changes CT Interpretation Completed By: Radiologist - No pulmonary embolism. No aortic dissection or aneurism. No focal lung consolidation or pleural effusions. Nonspecific bilateral ground glass densities, predominantly in lung bases. Small anterior mediastinal soft tissue, probably thymic. ED physician reviewed this report and agrees. Re-Evaluation - Re-Evaluation First Eval Re-Evaluation Time: 02:58 Change: Improved Comment: Pt symptomatically improved. pt resting comfortably in bed. pt with no evidence of PE. Symptoms consistent with Bronchitis/viral syndrome. Chest Pain Course/Dx - Course Course Of Treatment: Pt given oral steroids and antiinflammtory with improvement in symptoms. - Chest Pain Differential Diagnosis/HQI/PQRI: Chest Wall, Lower Respiratory Infection, Pulmonary Edema, Pulmonary Embolism - Diagnoses Provider Diagnoses: Bronchitis Discharge - Sign-Out/Discharge Documenting (check all that apply): Discharge - Discharge Plan Condition: Improved Disposition: HOME Prescriptions: Benzonatate CAP* [Tessalon 100 MG CAP*] 100 mg PO TID PRN #20 cap PRN Reason: Cough Ibuprofen TAB* [Motrin TAB* 800 MG] 800 mg PO Q6H PRN #20 tab PRN Reason: Pain predniSONE TAB* [Deltasone TAB*] 60 mg PO DAILY 3 Days #9 tab Patient Education Materials: Acute Bronchitis (ED), Viral Syndrome (ED) Referrals: Josué Harrington MD [Primary Care Provider] - 2 Days - Billing Disposition and Condition Condition: IMPROVED Disposition: HOME The documentation as recorded by the Molina durant Stephanie accurately reflects the service I personally performed and the decisions made by Gracia diego Omari A, MD.
== END 2017-12-16 03:20 | disposition home or self-care (01) ==
LOC: ED 22:26
DX: J40 Bronchitis, not specified as acute or chronic (principal); R07.9 Chest pain, unspecified; R05 Cough; F17.210 Nicotine dependence, cigarettes, uncomplicated
CPT/HCPCS: 36415; 71046; 71275; 80053; 83605; 84484; 84702; 85025; 85060; 85379; 93005; 96374; 99283; A9270-GY; J7512; Q9967

== ENCOUNTER 2018-05-20 16:31 | Emergency (ER) | payer BC ==
[2018-05-20 16:40] VITALS: BP 122/83
--- NOTE | 2018-05-20 16:50 | UC ---
Lower Extremity/Ankle HPI - HPI Summary HPI Summary: 27 yo female presents with left foot pain. She tells me that two years ago she had surgery by podiatry for a bunion and was told that she would have "good and bad days". Over the last 3-4 days she has had increased pain in her foot and says that on the foot pad there is significant pain when walking. She has a job where she is on her feet all day and reports that after 4-5 hours on her 8 hour shift, her foot pain will increase. Also says that 5th and 4th toe are numb and that her 5th toe "doesn't do anything". Denies new injury. - History of Current Complaint Chief Complaint: UCLowerExtremity Stated Complaint: L FOOT COMPLAINT Time Seen by Provider: 05/20/18 16:50 Hx Obtained From: Patient Hx Last Menstrual Period: implanone Onset/Duration: Gradual Onset Severity Initially: Moderate Severity Currently: Moderate Pain Intensity: 7 Pain Scale Used: 0-10 Numeric Aggravating Factor(s): Standing, Ambulation Alleviating Factor(s): Rest, Elevation Able to Bear Weight: Yes - Allergies/Home Medications Allergies/Adverse Reactions: Allergies Allergy/AdvReac Type Severity Reaction Status Date / Time amoxicillin [From Augmentin] Allergy Rash Verified 05/20/18 16:41 clavulanic acid Allergy Rash Verified 05/20/18 16:41 [From Augmentin] codeine Allergy See Comment Verified 05/20/18 16:41 doxycycline Allergy GI Upset Verified 05/20/18 16:41 Estrogens Allergy See Comment Verified 05/20/18 16:41 ketorolac Allergy Facial Verified 05/20/18 16:41 Redness/Flushing hot sauce Allergy Severe "eats skin" Uncoded 05/20/18 16:41 SAUSAGE Allergy Severe THROAT Uncoded 05/20/18 16:41 FEELS LIKE IT CLOSES PMH/Surg Hx/FS Hx/Imm Hx Psychological History: Anxiety, Depression Other History Of: Negative For: HIV, Hepatitis B, Hepatitis C, Anticoagulant Therapy - Surgical History Surgical History: Yes Surgery Procedure, Year, and Place: 13 surgeries melanoma scares biopsies; left foot repairs - Family History Known Family History: Positive: Hypertension Negative: Cardiac Disease - Social History Occupation: Employed Full-time Lives: With Family Alcohol Use: Occasionally Substance Use Type: None Smoking Status (MU): Heavy Every Day Tobacco Smoker Type: Cigarettes Amount Used/How Often: 10 cigs daily Length of Time of Smoking/Using Tobacco: 11 YEARS Have You Smoked in the Last Year: Yes Household Exposure Type: Cigarettes Review of Systems Constitutional: Negative Skin: Negative Respiratory: Negative Cardiovascular: Negative Neurovascular: Negative Musculoskeletal: Other: - Left foot pain Neurological: Numbness - 5th and 4th left toes Psychological: Negative All Other Systems Reviewed And Are Negative: Yes Physical Exam - Summary Physical Exam Summary: GENERAL: NAD. WDWN. No pain distress. SKIN: No rashes, sores, lesions, or open wounds. CHEST: No accessory muscle use. Breathing comfortably and in no distress. CV: Pulses intact PT and DP. Cap refill <2seconds MSK: Left foot: TTP all about plantar surface - worse at foot pad and all MTPs. FROM. Strength 5/5. No edema or obvious bony deformities. Ankle NTTP FROM. NEURO: Alert. No sensation 5th and 4th distal left toes. Other sensations intact PSYCH: Age appropriate behavior. Triage Information Reviewed: Yes Vital Signs: Initial Vital Signs Temp 98.3 F 05/20/18 16:36 Pulse 111 05/20/18 16:36 Resp 18 05/20/18 16:36 BP 122/83 05/20/18 16:36 Pulse Ox 99 05/20/18 16:36 Vital Signs Reviewed: Yes Lower Extremity Course/Dx - Course Course Of Treatment: XR: IMPRESSION: #. Negative for fracture or radiographic evidence for hardware failure. Discussed at length with pt that her pain could be nerve related and strongly advised to use CAM boot. She is against using the CAM boot because it is too "clunky". Therefore will use a post op shoe and provide her with crutches. Refer to orthopedics for further eval as soon as possible. - Differential Dx/Diagnosis Provider Diagnoses: Left foot pain Discharge - Sign-Out/Discharge Documenting (check all that apply): Patient Departure All imaging exams completed and their final reports reviewed: Yes - Discharge Plan Condition: Stable Disposition: HOME Patient Education Materials: Metatarsalgia (DC) Forms: *Work Release Referrals: Josué Harrington MD [Primary Care Provider] - Edward Mcleod MD [Medical Doctor] - As Soon As Possible Additional Instructions: If you develop a fever, shortness of breath, chest pain, new or worsening symptoms - please call your PCP or go to the ED. 1) Rest, Ice, and elevate your foot as much as possible 2) Please follow up with Orthopedics as soon as possible for further evaluation - Billing Disposition and Condition Condition: STABLE Disposition: Home
--- NOTE | 2018-05-20 17:25 | RAD ---
Indication: LEFT foot pain. Sudden onset. Previous bunion surgery and peripheral nerve surgery. Comparison: December 21, 2016 Technique: AP, lateral, and oblique views LEFT foot. Report: Stable appearance of the first metacarpal, first proximal phalanx, and fifth metacarpal fixation screws. No evidence for hardware failure or loosening. Normal articular alignment. No fracture or stress reaction evident. 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 Unremarkable soft tissue contours. IMPRESSION: #. Negative for fracture or radiographic evidence for hardware failure.
== END 2018-05-20 18:15 | disposition home or self-care (01) ==
LOC: UCEAST 16:31
DX: M79.672 Pain in left foot (principal)
CPT/HCPCS: 99213; G0463

== ENCOUNTER 2018-09-19 14:30 | Emergency (ER) | payer BC ==
[2018-09-19] MEDS ORDERED: NS 0.9% 1000 ML* 1,000 ML IV ONE (14:54)
[2018-09-19 15:12] LABS: ABS Basophils 0.1 10^3/ul (0-0.2); ABS Eosinophils 0.3 10^3/ul (0-0.6); ABS Lymphocytes 3.3 10^3/ul (1.0-4.8); ABS Monocytes 0.6 10^3/ul (0-0.8); ABS Neutrophils 5.1 10^3/ul (1.5-7.7); ABS Nucleated RBC 0 10^3/ul; Eosinophil % 3.3 %; Hematocrit 41 % (35-47); Hemoglobin 14.1 g/dl (12.0-16.0); Mean Corpuscular HGB Conc 34 g/dl (31-36); Mean Corpuscular Hemoglobin 32 pg (27-31); Mean Corpuscular Volume 93 fL (80-97); Mean Platelet Volume 7.5 fL (7.4-10.4); Nucleated Red Blood Cells % 0; Platelet Count 297 10^3/ul (150-450); Red Blood Count 4.45 10^6/ul (4.00-5.40); Red Cell Distribution Width 13 % (10.5-15); White Blood Count 9.4 10^3/ul (3.5-10.8)
--- NOTE | 2018-09-19 15:17 | ED ---
- HPI Summary HPI Summary: A 28 y/o female accompanied by her boyfriend presents to the ED c/o vaginal bleeding. As per triage, "+preg test at [facility]. began experiencing lower back pain last week and today having vaginal bleeding. only 1 pad today. no abd pain, no N/V/D". According to the patient, she is . She has not experienced her period in a long time because of issues with medications and devices. She stated that she knows that she is because she did a test two times at home, both coming back positive. Additionally, her breast hurt and she knows what it feels like to be as she was before but had a miscarriage near the end of the first trimester and beginning of second trimester time period. She came to the [facility] ED because of vaginal bleeding that started today. She stated that yesterday it was brown and wanted to come in but she looked online that it wasn't a major concern. However, today , she has bright red vaginal bleeding when she wipes. She noted that she doesn' t think it is more than her regular menstrual period bleeding. She denies any abdominal pain, cramps or any acute pain anywhere. Additionally denies any dizziness or lightheadedness. She does have chronic back tightness/pain, but it is not associated with her complaint in the ED. Patient is otherwise healthy. Patient does take medication. Patient works at [employer] - History of Current Complaint Chief Complaint: EDVaginalBleeding Stated Complaint: VAGINAL BLEEDING Time Seen by Provider: 09/19/18 14:42 Hx Obtained From: Patient Chief Complaint: Vaginal Bleeding Onset/Duration: Started Days Ago, Still Present Current Severity: None Pain Intensity: 0 Location of Pain: None Character: None Aggravating Factors: Nothing Alleviating Factors: Nothing Associated Signs and Symptoms: Positive: Back Pain - CHRONIC, NOT ASSOCIATED WITH COMPLAINT TODAY, Vaginal Bleeding or Discharge - VAGINAL BLEEDING - Assessment Hx Now: No Hx Hysterectomy: No - Allergies/Home Medications Allergies/Adverse Reactions: Allergies Allergy/AdvReac Type Severity Reaction Status Date / Time amoxicillin [From Augmentin] Allergy Rash Verified 09/19/18 14:36 clavulanic acid Allergy Rash Verified 09/19/18 14:36 [From Augmentin] codeine Allergy See Comment Verified 09/19/18 14:36 doxycycline Allergy GI Upset Verified 09/19/18 14:36 Estrogens Allergy See Comment Verified 09/19/18 14:36 ketorolac Allergy Facial Verified 09/19/18 14:36 Redness/Flushing hot sauce Allergy Severe "eats skin" Uncoded 06/26/18 13:55 SAUSAGE Allergy Severe THROAT Uncoded 06/26/18 13:55 FEELS LIKE IT CLOSES GENERIC CONDOM Allergy REDNESS/SWE Uncoded 06/26/18 13:55 LLING tape Allergy Blisters Uncoded 07/24/18 08:31 PMH/Surg Hx/FS Hx/Imm Hx Endocrine/Hematology History: Denies: Hx Anticoagulant Therapy, Hx Diabetes, Hx Thyroid Disease Cardiovascular History: Denies: Hx Congestive Heart Failure, Hx Deep Vein Thrombosis, Hx Hypertension , Hx Myocardial Infarction, Hx Pacemaker/ICD Respiratory History: Reports: Hx Asthma - As a child Denies: Hx Chronic Obstructive Pulmonary Disease (COPD), Hx Lung Cancer, Hx Pneumonia, Hx Pulmonary Embolism GI History: Denies: Hx Gall Bladder Disease, Hx Gastrointestinal Bleed, Hx Ulcer, Hx Urosepsis History: Denies: Hx Kidney Stones, Hx Renal Disease Musculoskeletal History: Denies: Hx Rheumatoid Arthritis Sensory History: Denies: Hx Contacts or Glasses, Hx Hearing Aid Opthamlomology History: Denies: Hx Contacts or Glasses Neurological History: Reports: Hx Seizures - as a child, not on meds Denies: Hx Dementia, Hx Migraine, Hx Transient Ischemic Attacks (TIA) Psychiatric History: Reports: Hx Anxiety, Hx Depression Denies: Hx Panic Disorder, Hx Schizophrenia, Hx Bipolar Disorder - Cancer History Cancer Type, Location and Year: MELANOMA Hx Chemotherapy: No Hx Radiation Therapy: No - Surgical History Surgery Procedure, Year, and Place: 13 surgeries melanoma scares biopsies;. left foot repairs - SCREWS - Immunization History Date of Tetanus Vaccine: 4 years ago Date of Influenza Vaccine: none wants to follow up with PCP Infectious Disease History: No Infectious Disease History: Denies: Hx Clostridium Difficile, Hx Hepatitis, Hx Human Immunodeficiency Virus (HIV), Hx of Known/Suspected MRSA, Hx Shingles, Hx Tuberculosis, Hx Known/ Suspected VRE, Hx Known/Suspected VRSA, History Other Infectious Disease, Traveled Outside the [place] in Last 30 Days - Family History Known Family History: Positive: Hypertension Negative: Cardiac Disease - Social History Alcohol Use: Occasionally Substance Use Type: Reports: None Smoking Status (MU): Heavy Every Day Tobacco Smoker Type: Cigarettes Amount Used/How Often: 10 cigs daily Length of Time of Smoking/Using Tobacco: 11 YEARS Have You Smoked in the Last Year: Yes Review of Systems Negative: Fever Negative: Abdominal Pain, Vomiting, Diarrhea, Nausea Positive: discharge - VAGINAL BLEEDING Positive: Other - POSITIVE: CHRONIC BACK PAIN Neurological: Other - NEGATIVE: DIZZINESS All Other Systems Reviewed And Are Negative: Yes Physical Exam - Summary Physical Exam Summary: Appearance: Well-appearing, Well-nourished, lying in bed comfortably Skin: Warm, dry, no obvious rash Eyes: sclera anicteric, no conjunctival pallor ENT: mucous membranes moist, pharynx appears normal Neck: Supple, nontender Respiratory: Clear to auscultation, no signs of respiratory distress Cardiovascular: Normal S1, S2. No murmurs. Normal distal pulses in tibial and radial bilaterally. Abdomen: Soft, nontender, normal active bowel sounds present Musculoskeletal: Normal, Strength/ROM Intact Neurological: A&Ox3, awake and alert, mentation is normal, speech is fluent and appropriate Psychiatric: affect is normal, does not appear anxious or depressed - Physical Exam Triage Information Reviewed: Yes Vital Signs Reviewed: Yes Diagnostics - Vital Signs Vital Signs Temp Pulse Resp BP Pulse Ox 09/19/18 14:33 97.8 F 79 16 136/77 99 - Laboratory Result Diagrams: 09/19/18 15:00 09/19/18 15:00 Lab Statement: Any lab studies that have been ordered have been reviewed, and results considered in the medical decision making process. Course/Dx - Course Course Of Treatment: A 28 y/o female accompanied by her boyfriend presents to the ED c/o vaginal bleeding. She came to the [facility] ED because of vaginal bleeding that started today. She stated that yesterday it was brown and wanted to come in but she looked online that it wasn't a major concern. However, today, she has bright red vaginal bleeding when she wipes. She noted that she doesn't think it is more than her regular menstrual period bleeding. She denies any abdominal pain, cramps or any acute pain anywhere. Additionally denies any dizziness or lightheadedness. Physical examination was unremarkable. No laboratory scans were done. Hematology and Chemistry screens were done. No significant laboratory abnormalities were found. test came back negative. In the ED course, the patient received IV fluids. Patient will be discharged with a diagnosis of vaginal bleeding. Patient is to follow up with primary care provider in 2-3 days. Patient is to return to ED for any new or worsening symptoms. Patient is agreeable with this plan. - Diagnoses Provider Diagnoses: Vaginal bleeding Discharge - Sign-Out/Discharge Documenting (check all that apply): Patient Departure - DISCHARGE - Discharge Plan Condition: Good Disposition: HOME Referrals: Josué Harrington MD [Primary Care Provider] - 3 Days Additional Instructions: Your test came back negative, so this is likely just your period coming back. The [place] proved to be unnecessary at this point. - Billing Disposition and Condition Condition: GOOD Disposition: Home - Attestation Statements Document Initiated by Mars: Yes Documenting Juliaibe: Mark Villalta Provider For Whom Mars is Documenting (Include Credential): Bryon Rodriguez MD Scribe Attestation: Mark Shepherd, juliaibed for Bryon Rodriguez MD on 09/22/18 at 0201. Scribe Documentation Reviewed: Yes Provider Attestation: The documentation as recorded by the Mark durant accurately reflects the service I personally performed and the decisions made by me, Bryon Rodriguez MD Status of Scribe Document: Viewed
[2018-09-19 15:30] LABS: ALT 17 U/L (7-52); AST 20 U/L (13-39); Albumin 4.6 g/dL (3.2-5.2); Albumin/Globulin Ratio 1.7 (1-3); Alkaline Phosphatase 39 U/L (34-104); Anion Gap 5 mmol/L (2-11); BUN/Creatinine Ratio 10.7 (8-20); Blood Urea Nitrogen 8 mg/dL (6-24); CO2 Carbon Dioxide 26 mmol/L (22-32); Calcium 9.5 mg/dL (8.6-10.3); Chloride 108 mmol/L (101-111); EGFR Non-African American 90.7 (>60); Globulin 2.7 g/dL (2-4); Glucose 100 mg/dL (70-100); Potassium 3.6 mmol/L (3.5-5.0); Sodium 139 mmol/L (135-145); Total Protein 7.3 g/dL (6.4-8.9)
[2018-09-19 15:36] LABS: HCG Pregnancy < 0.60 mIU/mL
[2018-09-19 16:02] VITALS: BP 121/76
== END 2018-09-19 16:01 | disposition home or self-care (01) ==
LOC: ED 14:30
DX: N93.9 Abnormal uterine and vaginal bleeding, unspecified (principal); M54.5 Low back pain; Z88.0 Allergy status to penicillin; F17.210 Nicotine dependence, cigarettes, uncomplicated
CPT/HCPCS: 36415; 80053; 84702; 85025; 86850; 86900; 86901; 96360; 99282

== ENCOUNTER 2019-01-26 10:08 | Emergency (ER) | payer BC, OTHER ==
[2019-01-26 10:31] VITALS: BP 107/69
--- NOTE | 2019-01-26 10:51 | UC ---
UC General HPI - HPI Summary HPI Summary: BALL AREA OF L SORE FOR ABOUT 1 WEEK. THIS AM PT NOTES SOME SWELLING AND PURPLE DISCOLORATION. NO HX INJURY. NO FEVER. SURGERY ON L FOOT 2 YEARS AGO TO REMOVE A BUNION AND NEUROMA. DECREASED ROM L 4/5TH TOES, THINKS FROM PRIOR SURGERY. - History of Current Complaint Chief Complaint: UCLowerExtremity Stated Complaint: LT FOOT PAIN/BRUISING Time Seen by Provider: 01/26/19 10:36 Hx Obtained From: Patient Hx Last Menstrual Period: 01/02/19 Onset/Duration: Gradual Onset Timing: Constant Pain Intensity: 5 Aggravating: WALKING Associated Signs & Symptoms: Negative: Fever - Allergy/Home Medications Allergies/Adverse Reactions: Allergies Allergy/AdvReac Type Severity Reaction Status Date / Time amoxicillin [From Augmentin] Allergy Rash Verified 01/26/19 10:20 clavulanic acid Allergy Rash Verified 01/26/19 10:20 [From Augmentin] codeine Allergy See Comment Verified 01/26/19 10:20 doxycycline Allergy GI Upset Verified 01/26/19 10:20 Estrogens Allergy See Comment Verified 01/26/19 10:20 ketorolac Allergy Facial Verified 01/26/19 10:20 Redness/Flushing hot sauce Allergy Severe "eats skin" Uncoded 01/26/19 10:20 SAUSAGE Allergy Severe THROAT Uncoded 01/26/19 10:20 FEELS LIKE IT CLOSES GENERIC CONDOM Allergy REDNESS/SWE Uncoded 01/26/19 10:20 LLING tape Allergy Blisters Uncoded 01/26/19 10:20 PMH/Surg Hx/FS Hx/Imm Hx Psychological History: Depression Other History Of: Negative For: HIV, Hepatitis B, Hepatitis C, Anticoagulant Therapy - Surgical History Surgical History: Yes Surgery Procedure, Year, and Place: 13 surgeries melanoma scares biopsies;. left foot repairs - SCREWS - Family History Known Family History: Positive: Hypertension Negative: Cardiac Disease - Social History Alcohol Use: None Substance Use Type: None Smoking Status (MU): Heavy Every Day Tobacco Smoker Type: Cigarettes Amount Used/How Often: 10 cigs daily Length of Time of Smoking/Using Tobacco: 11 YEARS Have You Smoked in the Last Year: Yes Household Exposure Type: Cigarettes Review of Systems All Other Systems Reviewed And Are Negative: No Constitutional: Negative: Fever Skin: Positive: Rash - L FOOT Musculoskeletal: Positive: Decreased ROM - CHRONIC FROM PRIOR SURGERY-PT THINKS , Edema - l FOOT Neurological: Positive: Numbness - POST OP SITES-NOT ACUTE Physical Exam Triage Information Reviewed: Yes Appearance: Well-Appearing Vital Signs: Initial Vital Signs Temp 97.9 F 01/26/19 10:21 Pulse 78 01/26/19 10:21 Resp 16 01/26/19 10:21 BP 107/69 01/26/19 10:21 Pulse Ox 99 01/26/19 10:21 Vital Signs Reviewed: Yes Eyes: Positive: Conjunctiva Clear Respiratory: Positive: Lungs clear Cardiovascular: Positive: RRR Abdomen Description: Positive: Nontender Musculoskeletal: Positive: Other: - LLE COMPARED TO R: POST OP SCARS DORSAL FOOT. MILD SWELLING BALL OF FOOT AND DORSAL CENTRAL FOOT. MILD TENDERNESS/ ERYTHEMA CENTRAL DORSUM AND TO BALL OF FOOT. SPREADING OF TOES REVEALS MACERATION AND ODOR. DORSUM OF FOOT SLIGHTLY WARM. STRONG PULSE AND GROSS MOVEMENT AND SENSATION INTACT TIPS OF TOES. NO STREAKING. REST OF LLE IS UNREMARKABLE. Neurological: Positive: Alert Psychological: Positive: Age Appropriate Behavior Skin Exam: Normal Diagnostics - Radiology No standard instances Radiology Interpretation Completed By: Radiologist - IMPRESSION: POSTSURGICAL CHANGE. NO ACUTE OSSEOUS INJURY. IF SYMPTOMS PERSIST, RECOMMEND REPEAT IMAGING Course/Dx - Differential Dx - Multi-Symptom Differential Diagnoses: Other - non toxic. xray unremarkable, no gas/ osteomyelitis on xray. c/w tinea pedis and cellulitis. - Diagnoses Provider Diagnosis: Tinea pedis, Cellulitis Discharge - Sign-Out/Discharge Documenting (check all that apply): Patient Departure All imaging exams completed and their final reports reviewed: No Studies - Discharge Plan Condition: Stable Disposition: HOME Prescriptions: Cephalexin CAP* [Keflex CAP*] 500 mg PO TID 10 Days #30 cap Ketoconazole 2 % CREAM (NF) [Nizoral 2% CREAM (NF)] 1 applic TOPICAL BID 30 Days #1 tube Patient Education Materials: Athlete's Foot (ED), Cellulitis (ED) Referrals: Josué Harrington MD [Primary Care Provider] - 3 Days Additional Instructions: FOLLOW UP WITH DR HARRINGTON OR YOUR PODIATRIS IN 3 DAYS FOR A RECHECK. GO TO THE ER FOR ANY WORSENING. - Billing Disposition and Condition Condition: STABLE Disposition: Home
[2019-01-26] MEDS ORDERED: Ibuprofen ADULT LIQ* 600 MG/30 ML UDC PO ONE (10:52)
== END 2019-01-26 11:43 | disposition home or self-care (01) ==
LOC: UCCORT 10:08
DX: B35.3 Tinea pedis (principal); L03.116 Cellulitis of left lower limb; F32.9 Major depressive disorder, single episode, unspecified; R21 Rash and other nonspecific skin eruption; R20.2 Paresthesia of skin; F17.210 Nicotine dependence, cigarettes, uncomplicated; Z88.0 Allergy status to penicillin; Z88.5 Allergy status to narcotic agent; Z88.8 Allergy status to other drugs, medicaments and biological substances; Z91.018 Allergy to other foods; Z91.048 Other nonmedicinal substance allergy status
CPT/HCPCS: 99212; A9270-GY; G0463

== ENCOUNTER 2019-03-05 21:45 | Emergency (ER) | payer OTHER ==
[2019-03-05 22:03] VITALS: BP 115/67
[2019-03-05] MEDS ORDERED: Clindamycin CAP* 150 MG PO ONE (22:12)
--- NOTE | 2019-03-05 22:20 | UC ---
Throat Pain/Nasal Andrae HPI - HPI Summary HPI Summary: 28-year-old female comes in with a chief complaint of sore throat for last several days. Pains worse on the right. It hurts to swallow. Hurts less when she doesn't swallow. She also has fullness and pain in the right ear. Both ears feels clogged up. No chest congestion. No shortness of breath. - History of Current Complaint Chief Complaint: UCGeneralIllness Stated Complaint: ST, B/L EAR PAIN Time Seen by Provider: 03/05/19 21:58 Hx Last Menstrual Period: ~02/28/19 Pain Intensity: 7 - Allergies/Home Medications Allergies/Adverse Reactions: Allergies Allergy/AdvReac Type Severity Reaction Status Date / Time amoxicillin [From Augmentin] Allergy Rash Verified 03/05/19 21:58 clavulanic acid Allergy Rash Verified 03/05/19 21:58 [From Augmentin] codeine Allergy See Comment Verified 03/05/19 21:58 doxycycline Allergy GI Upset Verified 03/05/19 21:58 Estrogens Allergy See Comment Verified 03/05/19 21:58 ketorolac Allergy Facial Verified 03/05/19 21:58 Redness/Flushing hot sauce Allergy Severe "eats skin" Uncoded 03/05/19 21:58 SAUSAGE Allergy Severe THROAT Uncoded 03/05/19 21:58 FEELS LIKE IT CLOSES GENERIC CONDOM Allergy REDNESS/SWE Uncoded 03/05/19 21:58 LLING tape Allergy Blisters Uncoded 03/05/19 21:58 Home Medications: Home Medications D-Methorphan/PE/Acetaminophen [Vicks Dayquil Cold & Flu] 2 cap PO ONCE 03/05/19 [History Confirmed 03/05/19] PMH/Surg Hx/FS Hx/Imm Hx Previously Healthy: Yes Other History Of: Negative For: HIV, Hepatitis B, Hepatitis C, Anticoagulant Therapy - Surgical History Surgical History: Yes Surgery Procedure, Year, and Place: 13 surgeries melanoma scares biopsies;. left foot repairs - SCREWS - Family History Known Family History: Positive: Hypertension Negative: Cardiac Disease - Social History Alcohol Use: None Substance Use Type: None Smoking Status (MU): Heavy Every Day Tobacco Smoker Type: Cigarettes Amount Used/How Often: 1/2 PPD Length of Time of Smoking/Using Tobacco: Since Age 13 Have You Smoked in the Last Year: Yes Household Exposure Type: Cigarettes - Immunization History Most Recent Tetanus Shot: 01/15/13 Review of Systems All Other Systems Reviewed And Are Negative: Yes Constitutional: Positive: Negative Skin: Positive: Negative Eyes: Positive: Negative ENT: Positive: Sore Throat, Ear Ache, Nasal Discharge, Sinus Congestion Respiratory: Positive: Negative Cardiovascular: Positive: Negative Gastrointestinal: Positive: Negative Motor: Positive: Negative Neurovascular: Positive: Negative Musculoskeletal: Positive: Negative Neurological: Positive: Negative Psychological: Positive: Negative Is Patient Immunocompromised?: No Physical Exam Triage Information Reviewed: Yes Appearance: Well-Appearing, No Pain Distress, Well-Nourished Vital Signs: Initial Vital Signs Temp 98.5 F 03/05/19 21:55 Pulse 102 03/05/19 21:55 Resp 14 03/05/19 21:55 BP 115/67 03/05/19 21:55 Pulse Ox 98 03/05/19 21:55 Vital Signs Reviewed: Yes Eye Exam: Normal Eyes: Positive: Conjunctiva Clear ENT: Positive: Pharyngeal erythema, Nasal congestion, Nasal drainage, TM dull - RT, Tonsillar swelling - 2+ B/L Neck: Positive: Supple Respiratory: Positive: Lungs clear, Normal breath sounds, No respiratory distress Cardiovascular: Positive: RRR Musculoskeletal Exam: Normal Musculoskeletal: Positive: Strength Intact, ROM Intact Neurological: Positive: Alert, Muscle Tone Normal Psychological Exam: Normal Psychological: Positive: Age Appropriate Behavior Skin Exam: Normal Throat Pain/Nasal Course/Dx - Course Course Of Treatment: DISCUSSED VIRAL VERSES BACTERIAL INFECTION AND THE ROLE OF ANTIBIOTICS. THE PATIENT PREFERS TO BE ON ANTIBIOTICS AT THIS TIME. - Differential Dx/Diagnosis Provider Diagnosis: Tonsillitis Discharge - Sign-Out/Discharge Documenting (check all that apply): Patient Departure All imaging exams completed and their final reports reviewed: No Studies - Discharge Plan Condition: Stable Disposition: HOME Prescriptions: Clindamycin Cap(NF) [Clindamycin Cap 300 mg Cap(NF)] 300 mg PO Q6H #38 cap Patient Education Materials: Tonsillitis (ED) Referrals: Josué Harrington MD [Primary Care Provider] - Additional Instructions: FOLLOW UP WITH YOUR DOCTOR IF NOT COMPLETELY IMPROVED. GET RECHECKED SOONER IF YOUR CONDITION WORSENS OR ANY QUESTIONS OR CONCERNS. - Billing Disposition and Condition Condition: STABLE Disposition: Home
== END 2019-03-05 22:26 | disposition home or self-care (01) ==
LOC: UCCORT 21:45
DX: J03.90 Acute tonsillitis, unspecified (principal); Z88.0 Allergy status to penicillin; Z88.5 Allergy status to narcotic agent; Z88.6 Allergy status to analgesic agent; F17.210 Nicotine dependence, cigarettes, uncomplicated
CPT/HCPCS: 99212; A9270-GY; G0463

== ENCOUNTER 2019-04-09 10:39 | Emergency (ER) | payer OTHER ==
[2019-04-09 11:13] VITALS: BP 114/68
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
[2019-04-09] MEDS ORDERED: Acetaminophen TAB* 325 MG PO ONE (12:11)
== END 2019-04-09 12:31 | disposition home or self-care (01) ==
LOC: UCCORT 10:39
DX: S90.32XA Contusion of left foot, initial encounter (principal); W31.89XA Contact with other specified machinery, initial encounter; Y92.9 Unspecified place or not applicable; Z98.890 Other specified postprocedural states; Z96.698 Presence of other orthopedic joint implants; Z85.820 Personal history of malignant melanoma of skin; F17.210 Nicotine dependence, cigarettes, uncomplicated
CPT/HCPCS: 84702; 99212; A9270-GY; G0463

== ENCOUNTER 2019-08-02 15:46 | Emergency (ER) | payer OTHER ==
--- OUTSIDE RECORDS SUMMARY | 2019-08-02 16:07 | XMS REPORT | Continuity of Care Document ---
:1990 External Reference #:[id number] Author Name Edward Mcleod M.D. (transmitted by agent of provider Reese Ashton) Address [address] [place] [address] [place] [address] Care Team Providers Name Role Phone Josué Harrington MD - Family Care Team Information Services Tech [phone] Medicine Problems Description No Information Available Social History Type Date Description Comments Sex Unknown Tobacco Use Start: Unknown current cigarette Has been since age smoker 14 ETOH Use Denies alcohol use Recreational Drug Use Denies Drug Use Tobacco Use Start: Unknown Light tobacco smoker (10 or fewer cigarettes/day) Smoking Status Reviewed: 07/04/19 Light tobacco smoker (10 or fewer cigarettes/day) Exercise Type/Frequency Exercises sporadically Allergies, Adverse Reactions, Alerts Active Allergies Reaction Severity Comments Date Augmentin 06/18/2013 Codeine 06/18/2013 Doxycycline 01/09/2018 Hot Sauce 01/09/2018 Sausage 04/11/2019 Tramadol IV form only 04/11/2019 Adhesive 05/23/2019 Latex 05/23/2019 Medications Active Medications SIG Qnty Indications Ordering Provider Date [place] 1 by mouth every 42tabs S90.32xS Edward Mcleod, 06/06/2019 5-325mg Tablets 8 hours as needed M.D. for pain Gabapentin 1 by mouth twice 60caps S90.32xS Edward Mcleod, 06/06/2019 300mg a day M.D. Capsules One Daily take one Unknown capsule/tablet Tablets daily by mouth Vitamin B-Complex 1 by mouth every Unknown day Tablets Duloxetine HCL 2 by mouth every Unknown 30mg day Caps DR Patel Clindamycin HCL take 1 capsule by Unknown 150mg mouth every 6 Capsules hours History Medications Tramadol HCL 1 tablet every 12 30tabs Raymundo Staples MD 04/18/2019 - 50mg hours as needed 05/22/2019 Tablets for pain Meloxicam take one tablet 30tabs Edward Mcleod, 04/13/2019 - 15mg by mouth every M.D. 05/22/2019 Tablets day with food Immunizations Description No Information Available Vital Signs Date Vital Result Comment 07/04/2019 11:24am Height 63 inches 5'3" Weight 185.00 lb Heart Rate 111 /min BP Systolic Sitting 116 mmHg BP Diastolic Sitting 62 mmHg Respiratory Rate 18 /min Pain Level 7 O2 % BldC Oximetry 98 % BMI (Body Mass Index) 32.8 kg/m2 06/06/2019 9:39am Height 63 inches 5'3" Heart Rate 93 /min BP Systolic Sitting 122 mmHg BP Diastolic Sitting 78 mmHg Respiratory Rate 18 /min Pain Level 8 O2 % BldC Oximetry 97 % Results Description No Information Available Procedures Description No Information Available Medical Devices Description No Information Available Encounters Type Date Location Provider Dx Diagnosis Office Visit 06/06/2019 [facility] S90.32xS Contusion of 9:30a at [facility] left foot, sequela M79.672 Pain in left foot Office Visit 05/23/2019 2:45p Sandra Leon S90.32xS Contusion of at [facility] M.[facility] left foot, sequela Office Visit 04/18/2019 1:45p Sandra Leon S90.32xS Contusion of at [facility] M.[facility] left foot, sequela M79.672 Pain in left foot Office Visit 04/11/2019 9:15a Sandra Leon S90.32xS Contusion of at [facility] M.[facility]. left foot, sequela M79.672 Pain in left foot Assessments Date Code Description Provider 06/06/2019 S90.32xS Contusion of left foot, cody Mcleod M.D. 06/06/2019 M79.672 Pain in left foot Edward Mcleod M.D. 05/23/2019 S90.32xS Contusion of left foot, cody Mcleod M.D. 04/18/2019 S90.32xS Contusion of left foot, cody Mcleod M.D. 04/18/2019 M79.672 Pain in left foot Edward Mcleod M.D. 04/11/2019 S90.32xS Contusion of left foot, sequela Edward Mcleod M.D. 04/11/2019 M79.672 Pain in left foot Edward Mcleod M.D. Plan of Treatment Future Appointment(s):08/08/2019 11:00 am - Edward Mcleod M.D. at [facility] Functional Status Description No Information Available Mental Status Description No Information Available Referrals Refer to Dr Reason for Referral Status Appt Date Soni Walton MD possible regional pain syndrome left foot Scheduled 07/25/2019 [address] [place] [phone]
--- OUTSIDE RECORDS SUMMARY | 2019-08-02 16:07 | XMS REPORT | Continuity of Care Document ---
:1990 External Reference #:[id number] Author Name Edward Mcleod M.D. (transmitted by agent of provider Reese Ashton) Address [address] [place] [address] [place] [address] Care Team Providers Name Role Phone Josué Harrington MD - Family Care Team Information General Dentist/Owner [phone] Medicine Problems Description No Information Available Social History Type Date Description Comments Sex Unknown Tobacco Use Start: Unknown current cigarette Has been since age smoker 14 ETOH Use Denies alcohol use Recreational Drug Use Denies Drug Use Tobacco Use Start: Unknown Light tobacco smoker (10 or fewer cigarettes/day) Smoking Status Reviewed: 07/25/19 Light tobacco smoker (10 or fewer cigarettes/day) Exercise Type/Frequency Exercises sporadically Allergies, Adverse Reactions, Alerts Active Allergies Reaction Severity Comments Date Augmentin 06/18/2013 Codeine 06/18/2013 Doxycycline 01/09/2018 Hot Sauce 01/09/2018 Sausage 04/11/2019 Tramadol IV form only 04/11/2019 Adhesive 05/23/2019 Latex 05/23/2019 Medications Active Medications SIG Qnty Indications Ordering Provider Date [place] 1 by mouth every 42tabs S90.32xS Edward Mcleod, 06/06/2019 5-325mg Tablets 8 hours as M.D. needed for pain Gabapentin 1 by mouth twice 60caps S90.32xS Edward Mcleod, 06/06/2019 300mg a day M.D. Capsules One Daily take one Unknown capsule/tablet Tablets daily by mouth Vitamin B-Complex 1 by mouth every Unknown day Tablets Duloxetine HCL 2 by mouth every Unknown 30mg day Caps DR Part History Medications Tramadol HCL 1 tablet every 12 30tabs Raymundo Staples MD 04/18/2019 - 50mg hours as needed 05/22/2019 Tablets for pain Meloxicam take one tablet 30tabs Edward Mcleod, 04/13/2019 - 15mg by mouth every M.D. 05/22/2019 Tablets day with food Immunizations Description No Information Available Vital Signs Date Vital Result Comment 07/25/2019 2:03pm Height 63 inches 5'3" Weight 185.00 lb Heart Rate 100 /min BP Systolic Sitting 122 mmHg BP Diastolic Sitting 74 mmHg Pain Level 6 BMI (Body Mass Index) 32.8 kg/m2 07/04/2019 11:24am Height 63 inches 5'3" Weight 185.00 lb Heart Rate 111 /min BP Systolic Sitting 116 mmHg BP Diastolic Sitting 62 mmHg Respiratory Rate 18 /min Pain Level 7 O2 % BldC Oximetry 98 % BMI (Body Mass Index) 32.8 kg/m2 Results Description No Information Available Procedures Description No Information Available Medical Devices Description No Information Available Encounters Type Date Location Provider Dx Diagnosis Office Visit 07/04/2019 Sandra Mcleod S90.32xS Contusion of 11:15a at [facility] left foot, sequela M79.672 Pain in left foot Office Visit 06/06/2019 9:30a [facility] Leon S90.32xS Contusion of at [facility] M.[facility]. left foot, sequela M79.672 Pain in left foot Office Visit 05/23/2019 2:45p Sandra Leon S90.32xS Contusion of at [facility] M.[facility]. left foot, sequela Office Visit 04/18/2019 1:45p Sandra Leon S90.32xS Contusion of at [facility] M.[facility]. left foot, sequela M79.672 Pain in left foot Office Visit 04/11/2019 9:15a Sandra Leon S90.32xS Contusion of norma Mcleod M.D. left foot, sequela M79.672 Pain in left foot Assessments Date Code Description Provider 07/25/2019 G57.92 Unspecified mononeuropathy of left lower Edward Mcleod M.D. limb 07/04/2019 S90.32xS Contusion of left foot, sequshimon Mcleod M.D. 07/04/2019 M79.672 Pain in left foot Edward Mcleod M.D. 06/06/2019 S90.32xS Contusion of left foot, cody Mcleod M.D. 06/06/2019 M79.672 Pain in left foot Edward Mcleod M.D. 05/23/2019 S90.32xS Contusion of left foot, cody Mcleod M.D. 04/18/2019 S90.32xS Contusion of left foot, cody Mcleod M.D. 04/18/2019 M79.672 Pain in left foot Edward Mcleod M.D. 04/11/2019 S90.32xS Contusion of left foot, cody Mcleod M.D. 04/11/2019 M79.672 Pain in left foot Edward Mcleod M.D. Plan of Treatment Future Appointment(s):08/22/2019 1:45 pm - [facility]07/25/2019 - Edward Mcleod M.D.G57.92 Unspecified mononeuropathy of left lower limbNew Therapy:Physical TherapyFollow up:4 weeks Functional Status Description No Information Available Mental Status Description No Information Available Referrals Refer to Reason for Referral Status Appt Date Soni Walton MD possible regional pain syndrome left foot Scheduled 07/25/2019 [address] [place] [phone]
--- OUTSIDE RECORDS SUMMARY | 2019-08-02 16:07 | XMS REPORT | Continuity of Care Document ---
:1990 External Reference #:[id number] Author Name Edward Mcleod M.D. (transmitted by agent of provider Reese Ashton) Address [address] [place] [address] [place] [address] Care Team Providers Name Role Phone Josué Harrington MD - Family Care Team Information Capital Project Engineer [phone] Medicine Problems Description No Information Available Social History Type Date Description Comments Sex Unknown Tobacco Use Start: Unknown current cigarette Has been since age smoker 14 ETOH Use Denies alcohol use Recreational Drug Use Denies Drug Use Tobacco Use Start: Unknown Light tobacco smoker (10 or fewer cigarettes/day) Smoking Status Reviewed: 06/06/19 Light tobacco smoker (10 or fewer cigarettes/day) Exercise Type/Frequency Exercises sporadically Allergies, Adverse Reactions, Alerts Active Allergies Reaction Severity Comments Date Augmentin 06/18/2013 Codeine 06/18/2013 Doxycycline 01/09/2018 Hot Sauce 01/09/2018 Sausage 04/11/2019 Tramadol IV form only 04/11/2019 Adhesive 05/23/2019 Latex 05/23/2019 Medications Active Medications SIG Qnty Indications Ordering Provider Date [place] 1 by mouth every 42tabs S90.32xS Edward [...] Available Vital Signs Date Vital Result Comment 06/06/2019 9:39am Height 63 inches 5'3" Heart Rate 93 /min BP Systolic Sitting 122 mmHg BP Diastolic Sitting 78 mmHg Respiratory Rate 18 /min Pain Level 8 O2 % BldC Oximetry 97 % 05/23/2019 3:01pm Height 63 inches 5'3" Heart Rate 74 /min BP Systolic Sitting 100 mmHg BP Diastolic Sitting 66 mmHg Respiratory Rate 16 /min Pain Level 7 O2 % BldC Oximetry 98 % Results Description No Information Available Procedures Description No Information Available Medical Devices Description No Information Available Encounters Type Date Location Provider Dx Diagnosis Office Visit 04/18/2019 Orth[facility] Edward Mcleod S90.32xS Contusion of left 1:45p [facility] foot, [facility] M79.672 Pain in left foot Office Visit 04/11/2019 9:15a Orthopedic Edward S90.32xS Contusion of [facility] Soni Mcleod M.D. left foot, AT [facility] M79.672 Pain in left foot Assessments Date [...] Edward Mcleod M.D. Plan of Treatment Future Appointment(s):07/04/2019 11:15 am - Edward Mcleod M.D. at [facility] AT Dkdygfvz32/11/2019 - Edward Mcleod M.D.S90.32xS Contusion of left foot, sequelaNew Medication:[place] 5-325 mg - 1 by mouth every 8 hours as needed for painGabapentin 300 mg - 1 by mouth twice a dayFollow up:4 [id number] Pain in left footFollow up:4 weeks Functional Status Description No Information Available Mental Status Description No Information Available Referrals Refer to Reason for Referral Status Appt Date Soni Walton MD possible regional pain syndrome left foot Scheduled 06/28/2019 [address] [phone]
[2019-08-02 16:25] VITALS: BP 125/72
--- NOTE | 2019-08-02 17:07 | UC ---
Lower Extremity/Ankle HPI - HPI Summary HPI Summary: 28 y/o female presents to the urgent care c/o RT great toe pain, swelling and bruise, left arm pain and left side of lower back pain s/p falling down 6 stairs yesterday. She states she had mild bleeding around RT great toe nail. She cleaned it, but no bruise on the toenail. What is more painful is his RT great toe since she is now limping. Pain is 7/10 and has been taking Ibuprofen PO 800mg to alleviate symptoms, Pt w/ Hx of LF bunion surgery on 03/2019. Pt denies numbness and tingling sensation over all extremities. Pt denies saddle anesthesia, urinary or fecal incontinence, urinary symptoms,numbness or tingling in all extremities, SOb, chest pain, abdominal pain, N/V/D. - History of Current Complaint Chief Complaint: UCLowerExtremity Stated Complaint: RT FOOT/RT ARM/BACK PAIN Time Seen by Provider: 08/02/19 17:06 Hx Obtained From: Patient Hx Last Menstrual Period: 07/24/19 ?: No - Hx of B/L tube ligation Onset/Duration: Sudden Onset, Lasting Days - 1 day, Worse Since - this morning w / limping Severity Initially: Moderate Severity Currently: Moderate Pain Intensity: 7 Pain Scale Used: 0-10 Numeric Aggravating Factor(s): Standing, Ambulation Alleviating Factor(s): Rest, Elevation, OTC Meds - last dose of Ibuprofen 800mg about 1hr ago Able to Bear Weight: Yes - Risk Factors Gout Risk Factors: Negative DVT Risk Factors: Negative Septic Arthritis Risk Factor: Negative - Allergies/Home Medications Allergies/Adverse Reactions: Allergies Allergy/AdvReac Type Severity Reaction Status Date / Time amoxicillin [From Augmentin] Allergy Rash Verified 08/02/19 16:26 clavulanic acid Allergy Rash Verified 08/02/19 16:26 [From Augmentin] codeine Allergy See Comment Verified 08/02/19 16:26 doxycycline Allergy GI Upset Verified 08/02/19 16:26 Estrogens Allergy See Comment Verified 08/02/19 16:26 ketorolac Allergy Facial Verified 08/02/19 16:26 Redness/Flushing hot sauce Allergy Severe "eats skin" Uncoded 08/02/19 16:26 SAUSAGE Allergy Severe THROAT Uncoded 08/02/19 16:26 FEELS LIKE IT CLOSES GENERIC CONDOM Allergy REDNESS/SWE Uncoded 08/02/19 16:26 LLING tape Allergy Blisters Uncoded 08/02/19 16:26 Home Medications: Home Medications DULoxetine DR JOINER* [Cymbalta CAP*] 60 mg PO DAILY 08/02/19 [History Confirmed ] Ibuprofen 800 mg PO Q6HR PRN 08/02/19 [History Confirmed 08/02/19] PMH/Surg Hx/FS Hx/Imm Hx Previously Healthy: Yes Endocrine History: Hypothyroidism Other History Of: Negative For: HIV, Hepatitis B, Hepatitis C, Anticoagulant Therapy - Surgical History Surgical History: Yes Surgery Procedure, Year, and Place: 13 surgeries melanoma scares biopsies;. left foot repairs - SCREWS. DENTAL - Family History Known Family History: Positive: Hypertension, Diabetes Negative: Cardiac Disease - Social History Occupation: Employed Full-time Lives: With Family Alcohol Use: None Substance Use Type: None Smoking Status (MU): Heavy Every Day Tobacco Smoker Type: Cigarettes Amount Used/How Often: <1/2 PPD Length of Time of Smoking/Using Tobacco: Since Age 13 Have You Smoked in the Last Year: Yes Household Exposure Type: Cigarettes - Immunization History Most Recent Tetanus Shot: 01/15/13 Vaccination Up to Date: Yes Review of Systems All Other Systems Reviewed And Are Negative: Yes Constitutional: Positive: Negative Skin: Positive: Bruising - Rt great toe, left forearm and left side of lower back s/p fall Eyes: Positive: Negative ENT: Positive: Negative Respiratory: Positive: Negative Cardiovascular: Positive: Negative Gastrointestinal: Positive: Negative Genitourinary: Positive: Negative Motor: Positive: Negative Neurovascular: Positive: Negative Musculoskeletal: Positive: Decreased ROM - Rt foot and lower back s/p fall, Other: - left side of lower back, left fore arm and Rt foot and ankle pain s/p falling down stairs yesterday Neurological: Positive: Negative Psychological: Positive: Negative Is Patient Immunocompromised?: No Physical Exam - Summary Physical Exam Summary: Vital Signs Reviewed: Yes Appearance: Well-Appearing, Well-Nourished, obese female female sitting in the examining table w/o any apparent distress. Eyes: Positive: Conjunctiva Clear - PERRLA, EOMI. ENT: Positive: Normal ENT inspection, Hearing grossly normal, Pharynx normal, TMs normal, Uvula midline Neck: Positive: Supple, Nontender, No Lymphadenopathy Respiratory: Positive: Chest non-tender, Lungs clear, Normal breath sounds, No respiratory distress Cardiovascular: Positive: RRR, No Murmur, Pulses Normal, Brisk Capillary Refill Abdomen Description: Positive: Nontender, No Organomegaly, Soft. Negative: CVA Tenderness (R), CVA Tenderness (L) Bowel Sounds: Positive: Present Musculoskeletal: LF forearm and wrist: The L elbow is w/o any deformity when compared to the R elbow. No obvious surface trauma, ecchymosis, mild soft tissue swelling and bruise at the lateral side of left forearm w/Point tenderness to palpation. No epicondylar or axillary lymphadenopathy. Decreased ROM due to pain. Muscle strength. Intact motor and sensation of ulnar , median, and radial nerves. left wrist FROM and mild tenderness over the ulnar side of the left wrist, no tenderness on palpation, no swelling or ecchymosis. BACK: Patient walked into the urgent care room with symmetric ambulation, No signs of limping, antalgic, able to bear weight. No signs of trauma, No masses palpated. Point tenderness at the left paraspinal at the level of L4-S1 and mild bruise, No CVAT, no flank ecchymosis . No sacroiliac notch tenderness, No saddle anesthesia.ROM: limited due to pain, Straight Leg Raise: negative. Patellar reflexes: brisk, symmetric Muscle strength lower extremities. Dorsiflexion/ plantar flexion of ankles. Heel/ toe walk. Lower extremities: Femoral, popliteal, posterior tibial, and dorsalis pedis pulses WNL. Pt refuse rectal exam Musculoskeletal: Positive: Strength Intact, ROM Intact, No Edema, RT Foot/Toes: Pt is able to bear weight but ambulate with mild limping. RT foot :No surface trauma, mild ecchymosis and bruise at the RT great DIP and tenderness on palpation and mild swelling w/ decrease ROM due to pain, erythema, lesions, ulcers or break in skin integrity. The R foot is without obvious asymmetry or deformity when compared to the L foot. No bony step-off, No tenderss of mid foot, no tenderness of hindfoot, Decrease plantar/dorsiflexion, inversion/ eversion due to pain. Distal motor and neurovascular status are intact. Neurological Exam: Normal Psychological Exam: Normal Skin Exam: Normal Triage Information Reviewed: Yes Vital Signs: Initial Vital Signs Temp 97.4 F 08/02/19 16:15 Pulse 97 08/02/19 16:15 Resp 16 08/02/19 16:15 BP 125/72 08/02/19 16:15 Pulse Ox 100 08/02/19 16:15 Lower Extremity Course/Dx - Course Course Of Treatment: 28 y/o female presents to the urgent care c/o RT great toe pain, swelling and bruise, left arm pain and left side of lower back pain s/p falling down 6 stairs yesterday. She states she had mild bleeding around RT great toe nail. She cleaned it, but no bruise on the toenail. What is more painful is his RT great toe since she is now limping. Pain is 04/04 and has been taking Ibuprofen PO 800mg to alleviate symptoms, Pt w/ Hx of LF bunion surgery on 03/2019. Pt denies numbness and tingling sensation over all extremities. Pt denies saddle anesthesia, urinary or fecal incontinence, urinary symptoms,numbness or tingling in all extremities, Sob, chest pain, abdominal pain, N/V/D. Hx obtained. Pt is hemodynamically stable, Vitlas: WNL, test: negative.RT ankle and Lumbosacral X-ray ordered, Impression: No acute osseous injury or subluxation observed as per radiologist. RT foot X-ray ordered, Impression:nondisplaced fracture intracentered at the IPJ of the RT first toe as per radiologist. LF forearm X-ray ordered, Impression: There is a equivocal nondisplaced lucency on the radial styloid, correlate w/ point tenderness and recommends LF wrist X-ray as per radiologist. LF wrist ordered: no fracture or osseous injury observed as per DR Mauricio. However, Pt explained final radiology report for left wrist X-ray will be done tomorrow and she will be notified tomorrow. However, I think it is a left wrist sprain., Pt's foot immobilized with chris-bandage, body tape w/ second toe by me and given a post-op shoe to avoid flexion. Left wrist immobilized w/ a thumb spica by the nurse. Pt stays she has crutches at home advised to avoid weight bearing until she can f/u w/ Orthopedic DR Jensen for further management on her RT great toe fracture. Advised RICE, and take Naproxen PO for pain. Pt Rx Keflex PO to prevent infection around great toe since there is a discrete skin abrasion on the lateral side. Pt strongly advised to f/u w/ Orthopedic for further evaluation and treatment on her RT great toe fracture. D/C instructions explained. Pt understood and agreed with D/C instructions - Differential Dx/Diagnosis Differential Diagnosis/HQI/PQRI: Arthritis, Contusion, Dislocation, Fracture ( Closed), Sprain, Strain, Tendonitis Provider Diagnosis: Lower back pain, Right foot injury, Nondisplaced fracture of right great toe, Left wrist sprain, Contusion of lower back Discharge ED - Sign-Out/Discharge Documenting (check all that apply): Patient Departure - d/C home All imaging exams completed and their final reports reviewed: Yes - Discharge Plan Condition: Stable Disposition: HOME Prescriptions: Cephalexin CAP* [Keflex CAP*] 500 mg PO TID #21 cap Patient Education Materials: Toe Fracture (ED), Wrist Sprain (ED) Forms: *Work Release Referrals: Josué Harrington MD [Primary Care Provider] - 2 Days Love Jensen MD [Medical Doctor] - 2 Days Additional Instructions: 1-Please take Ibuprofen PO q6-8hrs prn after meals as directed to alleviate pain and swelling. 2-Please apply ice, keep your foot immobilized with the Chris bandage and post- op shoe. use your crutches to avoid weight bearing. 3-Please apply ice, keep your wrist immobilized with the splint. Avoid heavy lifting. 4-Please f/u with Orthopedic Mikey in 1-2 days of further management in your toe fracture and possible left wrist fracture. further evaluation and treatment. - Billing Disposition and Condition Condition: STABLE Disposition: Home
== END 2019-08-02 19:15 | disposition home or self-care (01) ==
LOC: UCCORT 15:46
DX: S99.921A Unspecified injury of right foot, initial encounter (principal); S92.404A Nondisplaced unspecified fracture of right great toe, initial encounter for closed fracture; S63.502A Unspecified sprain of left wrist, initial encounter; S30.0XXA Contusion of lower back and pelvis, initial encounter; F17.210 Nicotine dependence, cigarettes, uncomplicated; Z91.09 Other allergy status, other than to drugs and biological substances; Z88.8 Allergy status to other drugs, medicaments and biological substances; Z88.5 Allergy status to narcotic agent; Z91.018 Allergy to other foods; Z88.0 Allergy status to penicillin; W10.9XXA Fall (on) (from) unspecified stairs and steps, initial encounter; Y92.9 Unspecified place or not applicable
CPT/HCPCS: 72110; 84702; 99213; G0463

== ENCOUNTER 2019-10-24 15:17 | Emergency (ER) | payer OTHER ==
--- OUTSIDE RECORDS SUMMARY | 2019-10-24 16:03 | XMS REPORT | Continuity of Care Document ---
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, high risk on cervical specimen Note: 01/2016 D-dimer above reference range ZACHARY Cabezas Onset: 09/05/2019 Note: two measurements in 2018 Hyperlipidemia ZACHARY Cabezsa Onset: 09/05/2019 Allergy to food ZACHARY Cabezas Onset: 09/05/2019 Note: sausage, hot sauce Cigarette smoker ZACHARY Cabezas Onset: 09/09/2019 Keloid scar Ivon Madrigal PA Onset: 09/10/2019 Resolved Problems Sprain of wrist and/or hand Edward Reaves MD Onset: 08/03/2019 Resolved: 09/05/2019 Social History Type Date Description Comments Sex Unknown Tobacco Use Start: Unknown current cigarette Has been since age smoker 14 ETOH Use Denies alcohol use Recreational Drug Use Denies Drug Use Tobacco Use Start: Unknown Light tobacco smoker (10 or fewer cigarettes/day) Smoking Status Reviewed: 09/10/19 Light tobacco smoker (10 or fewer cigarettes/day) Exercise Type/Frequency Exercises sporadically Allergies, Adverse Reactions, Alerts Active Allergies Reaction Severity Comments Date Augmentin rash 06/18/2013 Codeine nightmares 06/18/2013 Doxycycline dyspepsia 01/09/2018 Tramadol IV form caused erythema IV form only 04/11/2019 Adhesive Contact dermatitis 05/23/2019 Latex 05/23/2019 Medications Active Medications SIG Qnty Indications Ordering Date Provider Bacitracin apply topically 28.400gm L03.818 Brian 09/10/2019 (External) to minor MD Jori 500Unit/GM cuts/wounds two - Ointment four times a day as needed /Folic Acid 1 chewable 90tabs Brian 09/10/2019 vitamin by mouth MD Jori Tablets daily (contains 1mg folic acid) Chantix Starting as directed 53tabs F17.210 Brian 09/10/2019 Month Garry MD Jori 0.5mg X 11 & 1 mg X 42 Tablets Vitamin B-Complex 1 by mouth every Unknown day Tablets Duloxetine HCL 1 by mouth every DarJosué huff 60mg day A.MD Caps Part History Medications Kinder 1 by mouth 42tabs S90.32xS Edward Mcleod, 06/06/2019 - 5-325mg every 8 hours M.D. 08/03/2019 Tablets as needed for pain Gabapentin 1 by mouth 60caps S90.32xS Edward Mcleod, 06/06/2019 - 300mg twice a day M.D. 08/03/2019 Capsules Tramadol HCL 1 tablet every 30tabs Raymundo Staples, 04/18/2019 - 50mg 12 hours as 05/22/2019 Tablets needed for pain Meloxicam take one tablet 30tabs Edward Mcleod, 04/13/2019 - 15mg by mouth every M.D. 05/22/2019 Tablets day with food Medications Administered in Office Medication SIG Qnty Indications Ordering Provider Date Records Fee Edward Mcleod M.D. 08/14/2019 Injection Immunizations Description No Information Available Vital Signs Date Vital Result Comment 09/10/2019 2:47pm Height 65 inches 5'5" Weight 208.19 lb Heart Rate 92 /min BP Systolic Sitting 116 mmHg BP Diastolic Sitting 68 mmHg O2 % BldC Oximetry 98 % BMI (Body Mass Index) 34.6 kg/m2 08/31/2019 1:07pm Height 65 inches 5'5" Weight 205.00 lb Heart Rate 101 /min BP Systolic 104 mmHg BP Diastolic 72 mmHg Respiratory Rate 20 /min Body Temperature 98.9 F Pain Level 8 O2 % BldC Oximetry 97 % BMI (Body Mass Index) 34.1 kg/m2 Results Description No Information Available Procedures Date Code Description Status 08/31/2019 62253 Rad Exam; Toes Completed 08/03/2019 43127 Rad Exam; Wrist, Comp, Min 3 Views Completed Medical Devices Description No Information Available Encounters Type Date Location Provider Dx Diagnosis Office Visit 08/31/2019 Sandra Norton, S92.424D Nondisp fx of 1:00p at [facility] [place] dist phalanx of r great toe, 7thD S92.414D Nondisp fx of prox phalanx of r great toe, 7thD Office Visit 08/03/2019 11:00a Sandra Leon S63.592A Other specified at [facility] Re[facility] MD sprain of left wrist, initial encounter S63.512A Sprain of carpal joint of left wrist, initial encounter Office Visit 08/03/2019 10:15a Sandra Johnson S92.424A Nondisp fx of at [facility] MD distal phalanx of right great toe, init S92.414A Nondisp fx of proximal phalanx of right great toe, init Office Visit 07/25/2019 Sandra Leon G57.92 Unspecified 2:00p Orthopedics norma Mcleod M.D. mononeuropathy of [place] left lower limb Office Visit 07/04/2019 Sandra Leon S90.32xS Contusion of left 11:15a Orthopedics norma Mcleod M.D. foot, sequela [facility] M79.672 Pain in left foot Office Visit 06/06/2019 9:30a Sandra Ayala0.32xS Contusion of at [facility] M.D. left foot, sequela M79.672 Pain in left foot Office Visit 05/23/2019 2:45p Sandra Ayala0.32xS Contusion of at [facility] M.D. left foot, sequela Office Visit 04/18/2019 1:45p Sandra Ayala0.32xS Contusion of at [facility] M.D. left foot, sequela M79.672 Pain in left foot Office Visit 04/11/2019 9:15a Sandra Ayala0.32xS Contusion of at [facility] M.D. left foot, sequela M79.672 Pain in left foot Assessments Date Code Description Provider 09/10/2019 L03.818 Cellulitis of other sites ZACHARY Cabezas 09/10/2019 F17.210 Nicotine dependence, cigarettes, ZACHARY Cabezas uncomplicated 08/31/2019 S92.424D Nondisplaced fracture of distal phalanx of Martin Norton MD right great toe, subsequent encounter for fracture with routine healing 08/31/2019 S92.414D Nondisplaced fracture of proximal phalanx of Martin Norton MD right great toe, subsequent encounter for fracture with routine healing 08/29/2019 S63.592D Other specified sprain of left wrist, Edward Reaves MD subsequent encounter 08/03/2019 S63.592A Other specified sprain of left wrist, Edward Reaves MD initial encounter 08/03/2019 S92.424A Nondisplaced fracture of distal phalanx of Martin Norton MD right great toe, initial encounter for closed fracture 08/03/2019 S92.414A Nondisplaced fracture of proximal phalanx of Martin Norton MD right great toe, initial encounter for closed fracture 08/03/2019 S63.512A Sprain of carpal joint of left wrist, Edward Reaves MD initial encounter 07/25/2019 G57.92 Unspecified mononeuropathy of left lower Edward Mcleod M.D. limb 07/04/2019 S90.32xS Contusion of left foot, cody Mcleod M.D. 07/04/2019 M79.672 Pain in left [...] Edward Mcleod M.D. Plan of Treatment Future Appointment(s):10/02/2019 9:00 am - Varghese Goodman MD at [facility] AT Tvqavrei35/10/2020 1:45 pm - Edward Reaves MD at [facility] at Erwsuavm88/17/2020 11:30 am - Martin Norton MD at [facility] at Wfbklswu87/16/2019 - Ivonemely Madrigal, PAL03.818 Cellulitis of other sitesNew Medication:Bacitracin (External) 500 Unit/GM - apply topically to minor cuts/ wounds two - four times a day as neededComments:To left of umbilicus @ skin bx siteF17.210 Nicotine dependence, cigarettes, uncomplicatedNew Medication: Chantix Starting Month Garry 0.5 mg X 11 & 1 mg X 42 - as directedComments: Reviewed pertinent points of Chantix use. Functional Status Description No Information Available Mental Status Description No Information Available Referrals Refer to Reason for Referral Status Appt Date Soni Walton MD possible regional pain syndrome left foot Closed 08/29/2019 [address] [place] [id number] [phone]
--- OUTSIDE RECORDS SUMMARY | 2019-10-24 16:03 | XMS REPORT | Continuity of Care Document ---
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, high risk on cervical specimen Note: 01/2016 D-dimer above reference range ZACHARY Cabezas Onset: 09/05/2019 Note: two measurements in 2018 Hyperlipidemia ZACHARY Cabezas Onset: 09/05/2019 Allergy to food ZACHARY Cabezas Onset: 09/05/2019 Note: sausage, hot sauce Cigarette smoker ZACHARY Cabezas Onset: 09/09/2019 Keloid scar ZACHARY Cabezas Onset: 09/10/2019 Resolved Problems Sprain of wrist [...] Tablets Duloxetine HCL 1 by mouth every 30caps Brian 60mg day MD Jori Caps Part History Medications [place] 1 by mouth 42tabs S90.32xS Edward Mcleod, [...] Available Vital Signs Date Vital Result Comment 09/24/2019 3:14pm Height 65 inches 5'5" Weight 208.12 lb Heart Rate 84 /min BP Systolic Sitting 120 mmHg BP Diastolic Sitting 68 mmHg O2 % BldC Oximetry 97 % BMI (Body Mass Index) 34.6 kg/m2 Last Menstrual Period [id number] 09/10/2019 2:47pm Height 65 inches 5'5" Weight 208.19 lb Heart Rate 92 /min BP Systolic Sitting 116 mmHg BP Diastolic Sitting 68 mmHg O2 % BldC Oximetry 98 % BMI (Body Mass Index) 34.6 kg/m2 Results Description No Information Available Procedures Date Code Description Status 08/31/2019 42806 Rad Exam; Toes Completed 08/03/2019 92004 Rad Exam; Wrist, Comp, Min 3 Views Completed Medical Devices Description No Information Available Encounters Type Date Location Provider Dx Diagnosis Office Visit 09/10/2019 [facility] Ivon L03.818 Cellulitis of 2:30p Kaitlin PA other sites F17.210 Nicotine dependence, cigarettes, uncomplicated Z71.6 Tobacco abuse counseling Office Visit 08/31/2019 1:00p Sandra Goetzs Martin Johnson S92.424D Nondisp fx of at [facility] MD dist phalanx of r great toe, 7thD S92.414D Nondisp fx of prox phalanx of r great toe, 7thD Office Visit 08/29/2019 8:15a Sandra Leon S63.592D Other specified Orthopedics at [facility] sprain of left [place] wrist, subsequent encounter Office Visit 08/03/2019 11:00a Sandra Leon S63.592A Other specified Orthopedics at [facility] sprain of left [place] wrist, initial encounter S63.512A Sprain of carpal joint of left wrist, initial encounter Office Visit 08/03/2019 10:15a Sandra Johnson S92.424A Nondisp fx of at [facility] MD distal phalanx of right great toe, init S92.414A Nondisp fx of proximal phalanx of right great toe, init Office Visit 07/25/2019 Sandra Leon G57.92 Unspecified 2:00p Orthopedics at [facility] mononeuropathy of [place] left lower limb Office Visit 07/04/2019 Sandra Leon S90.32xS Contusion of left 11:15a Orthopedics at [facility] foot, sequshimon [place] M79.672 Pain in left foot Office Visit [...] in left foot Office Visit 04/11/2019 9:15a [facility] Edward S90.32xS Contusion of at [facility] M.D. left foot, sequela M79.672 Pain in left foot Assessments Date Code Description Provider 09/24/2019 N92.5 Other specified irregular menstruation ZACHARY Cabezas 09/24/2019 F17.210 Nicotine dependence, cigarettes, ZACHARY Cabezas uncomplicated 09/10/2019 L03.818 Cellulitis of other sites ZACHARY Cabezas 09/10/2019 F17.210 Nicotine dependence, cigarettes, ZACHARY Cabezas uncomplicated 09/10/2019 Z71.6 Tobacco abuse counseling ZACHARY Cabezas 08/31/2019 S92.424D Nondisplaced fracture of distal phalanx [...] limb 07/04/2019 S90.32xS Contusion of left foot, sequela Edward Mcleod M.D. 07/04/2019 M79.672 Pain in left foot Edward Mcleod M.D. 06/06/2019 S90.32xS Contusion of left foot, sequela Edward Harsha, M.D. 06/06/2019 M79.672 Pain in left foot [...] 9:00 am - Varghese Goodman MD at [facility] AT Ngkxehex77/10/2020 1:45 pm - Edward Reaves MD at [facility] at Xgekqxvp25/17/2020 11:30 am - Martin Norton MD at [facility] at Ffwlyccj27/30/2019 - SARAH Cabezas92.5 Other specified irregular menstruationNew Labs:HCG Quantitative (), Ordered: 09/24/19F17.210 Nicotine dependence, cigarettes, uncomplicated Functional Status Description No Information Available Mental Status Description No Information Available Referrals Refer to Reason for Referral Status Appt Date Soni Walton MD possible regional pain syndrome left foot Closed 08/29/2019 [address] [place] [id number] [phone]
--- OUTSIDE RECORDS SUMMARY | 2019-10-24 16:03 | XMS REPORT | Continuity of Care Document ---
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 [phone] Medicine Problems Active Problems Provider Date Sprain of wrist and/or hand Edward Reaves MD Onset: 08/03/2019 Social History Type Date Description Comments Sex Unknown Tobacco Use Start: Unknown current cigarette Has been since age smoker 14 ETOH Use Denies alcohol use Recreational Drug Use Denies Drug Use Tobacco Use Start: Unknown Light tobacco smoker (10 or fewer cigarettes/day) Smoking Status Reviewed: 08/29/19 Light tobacco smoker (10 or fewer cigarettes/day) Exercise Type/Frequency Exercises sporadically Allergies, Adverse Reactions, Alerts Active Allergies Reaction Severity Comments Date Augmentin 06/18/2013 Codeine 06/18/2013 Doxycycline 01/09/2018 Hot Sauce 01/09/2018 Sausage 04/11/2019 Tramadol IV form only 04/11/2019 Adhesive 05/23/2019 Latex 05/23/2019 Medications Active Medications SIG Qnty Indications Ordering Provider Date One Daily take one Unknown Tablets capsule/tablet daily by mouth Vitamin B-Complex 1 by mouth every Unknown Tablets day Duloxetine HCL 2 by mouth every Unknown 30mg Caps DR day Part History Medications [place] 1 by mouth 42tabs S90.32xS Edward Mcleod, [...] Available Vital Signs Date Vital Result Comment 08/29/2019 8:34am Height 65 inches 5'5" Weight 200.00 lb Heart Rate 94 /min BP Systolic 124 mmHg BP Diastolic 86 mmHg Body Temperature 97.6 F Pain Level 4 BMI (Body Mass Index) 33.3 kg/m2 08/03/2019 10:27am Height 65 inches 5'5" Weight 200.00 lb Heart Rate 95 /min BP Systolic 120 mmHg BP Diastolic 86 mmHg Respiratory Rate 20 /min Body Temperature 98.4 F Pain Level 9 O2 % BldC Oximetry 98 % BMI (Body Mass Index) 33.3 kg/m2 Results Description No Information Available Procedures Date Code Description Status 08/03/2019 48478 Rad Exam; Wrist, Comp, Min 3 Views Completed Medical Devices Description No Information Available Encounters Type Date Location Provider Dx Diagnosis Office Visit 08/03/2019 [facility] Edward Reaves, S63.592A Other specified 11:00a at [facility] [place] sprain of left wrist, initial encounter S63.512A Sprain of carpal joint of left wrist, initial encounter Office Visit 08/03/2019 10:15a [facility] Martin Johnson S92.424A Nondisp fx of at [facility] MD distal phalanx of right great toe, init S92.414A Nondisp fx of proximal phalanx of right great toe, init Office Visit 07/25/2019 Sandra Leon G57.92 Unspecified 2:00p [facility] mononeuropathy of [facility] left lower limb Office Visit 07/04/2019 Sandra Leon S90.32xS Contusion of left 11:15a [facility] foot, sequela Brown M79.672 Pain in left foot Office Visit [...] left foot Assessments Date Code Description Provider 08/29/2019 S63.592D Other specified sprain of left [...] foot Edward [facility] M.D. Plan of Treatment 08/29/2019 - Edward Reaves MDS63.592D Other specified sprain of left wrist, subsequent encounterFollow up:Follow up: will review images with her on Tuesday Functional Status Description No Information Available Mental Status Description No Information Available Referrals Refer to Reason for Referral Status Appt Date Soni Walton MD possible regional pain syndrome left foot Scheduled 08/29/2019 [address] [place] [phone]
--- OUTSIDE RECORDS SUMMARY | 2019-10-24 16:03 | XMS REPORT | Continuity of Care Document ---
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 [phone] Medicine Problems Active Problems Provider Date Sprain of wrist and/or hand Edward Reaves MD Onset: 08/03/2019 Social History Type Date Description Comments Sex Unknown Tobacco Use Start: Unknown current cigarette Has been since age smoker 14 ETOH Use Denies alcohol use Recreational Drug Use Denies Drug Use Tobacco Use Start: Unknown Light tobacco smoker (10 or fewer cigarettes/day) Smoking Status Reviewed: 08/31/19 Light tobacco smoker (10 or fewer cigarettes/day) [...] 30mg Caps DR day Part History Medications [place] 1 by mouth 42tabs S90.32xS Edward Mcleod, [...] Available Vital Signs Date Vital Result Comment 08/31/2019 1:07pm Height 65 inches 5'5" Weight 205.00 lb Heart Rate 101 /min BP Systolic 104 mmHg BP Diastolic 72 mmHg Respiratory Rate 20 /min Body Temperature 98.9 F Pain Level 8 O2 % BldC Oximetry 97 % BMI (Body Mass Index) 34.1 kg/m2 08/29/2019 8:34am Height 65 inches 5'5" Weight 200.00 lb Heart Rate 94 /min BP Systolic 124 mmHg BP Diastolic 86 mmHg Body Temperature 97.6 F Pain Level 4 BMI (Body Mass Index) 33.3 kg/m2 Results Description No Information Available Procedures Date Code Description Status 08/03/2019 95381 Rad Exam; Wrist, Comp, Min 3 Views Completed Medical Devices Description No Information Available Encounters Type Date Location Provider Dx Diagnosis Office Visit 08/03/2019 [facility] Edward Reaves, S63.592A Other specified 11:00a at [facility] [place] sprain of left wrist, initial encounter S63.512A Sprain of carpal joint of left wrist, initial encounter Office Visit 08/03/2019 10:15a [facility] Martin Johnson S92.424A Nondisp fx of at [facility] MD distal phalanx of right great toe, init S92.414A Nondisp fx of proximal phalanx of right great toe, init Office Visit 07/25/2019 Sandra Leon G57.92 Unspecified 2:00p [facility] at [facility] mononeuropathy of [place] left lower limb Office Visit 07/04/2019 Sandra Leon S90.32xS Contusion of left 11:15a [facility] M.D. foot, sequela [place] M79.672 Pain in left foot Office Visit [...] left foot Assessments Date Code Description Provider 08/31/2019 S92.424D Nondisplaced fracture of distal phalanx [...] of left foot, sequela Edward Mcleod M.D. 06/06/2019 M79.672 Pain in left foot Edward [facility]cleod M.D. 05/23/2019 S90.32xS Contusion of left foot, cody Edward Mcleod M.D. 04/18/2019 S90.32xS Contusion of left foot, casishimon Mcleod M.D. 04/18/2019 M79.672 Pain in left foot Edward Mcleod M.D. 04/11/2019 S90.32xS Contusion of left foot, cody Edward Mcleod M.D. 04/11/2019 M79.672 Pain in left foot Edward Mcleod M.D. Plan of Treatment Future Appointment(s):10/12/2019 11:30 am - Martin Norton MD at [facility] at [place]/16/2019 2:30 pm - ZACHARY Cabezas at [facility]08/31/2019 - Martin [place], MDS92.424D Nondisplaced fracture of distal phalanx of right great toe, subsequent encounter for fracture with routine healingFollow up:Follow up: 6 monlsB67.414D Nondisplaced fracture of proximal phalanx of right great toe, subsequent encounter for fracture with routine healing Functional Status Description No Information Available Mental Status Description No Information Available Referrals Refer to Reason for Referral Status Appt Date Soni Walton MD possible regional pain syndrome left foot Closed 08/29/2019 [address] [place] [phone]
--- OUTSIDE RECORDS SUMMARY | 2019-10-24 16:03 | XMS REPORT | Continuity of Care Document ---
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 [phone] Medicine Problems Active Problems Provider Date Sprain [...] 30mg Caps DR day Part History Medications [place] 1 by mouth 42tabs S90.32xS Edward Mcleod, [...] Available Procedures Date Code Description Status 08/03/2019 51953 Rad Exam; Wrist, Comp, Min 3 Views Completed Medical Devices Description No Information Available Encounters Type Date Location Provider Dx Diagnosis Office Visit 08/03/2019 [facility] Edward Reaves, S63.592A Other specified 11:00a at [facility] [place] sprain of left wrist, initial encounter S63.512A Sprain of carpal joint of left wrist, initial encounter Office Visit 08/03/2019 10:15a [facility] Martin Johnson S92.424A Nondisp fx of at [facility] [place] MD distal phalanx of right great toe, init S92.414A Nondisp fx of proximal phalanx of right great toe, init Office Visit 07/25/2019 Sandra Leon G57.92 Unspecified 2:00p [facility]oped[facility] at [facility] mononeuropathy of [place] left lower limb Office Visit 07/04/2019 Sandra Leon S90.32xS Contusion of left 11:15a [facility] at [facility] foot, sequela [place] M79.672 Pain in left foot Office Visit 06/06/2019 9:30a Sandra Leon S90.32xS Contusion of at [facility] M.D. left foot, sequela M79.672 Pain in left foot Office Visit 05/23/2019 2:45p [facility] S90.32xS Contusion of at [facility] M.D. left foot, sequela Office Visit 04/18/2019 1:45p Sandra Leon S90.32xS Contusion of at [facility] M.D. left foot, sequela M79.672 Pain in left foot Office Visit 04/11/2019 9:15a [facility] S90.32xS Contusion of at [facility] [...] M.D. 04/11/2019 S90.32xS Contusion of left foot, casishimon Mcleod M.D. 04/11/2019 M79.672 Pain in left foot Edward [facility] M.D. Plan of Treatment Future Appointment(s):10/05/2019 1:45 pm - Edward Reaves MD at [facility] at [place]/17/2020 11:30 am - Martin Norton MD at [facility] at [place]/16/2019 2:30 pm - ZACHARY Cabezas at [facility]08/31/2019 - Martin Norton, MDS92.424D Nondisplaced fracture of distal phalanx of right great toe, subsequent encounter for fracture with routine healingFollow up:Follow up: 6 grvihK17.414D Nondisplaced fracture of proximal phalanx of right great toe, subsequent encounter for fracture with routine healing Functional Status Description No Information Available Mental Status Description No Information Available Referrals Refer to Reason for Referral Status Appt Date Soni Walton MD possible regional pain syndrome left foot Closed 08/29/2019 [address] [phone]
[2019-10-24 16:07] VITALS: BP 103/65
[2019-10-24 16:47] LABS: Influenza A Molecular Negative (Negative); Influenza B Molecular Negative (Negative)
--- NOTE | 2019-10-24 17:09 | UC ---
FLU HPI - HPI Summary HPI Summary: 29 year old female presents with cough, productive at times with yellow phlegm, tactile fevers, chills, dizziness, fatigue, migraines, muslce aches, right ear pain, sore throat, mild shortness of breath since tuesday. boyfriend with same symptoms. has h/o asthma in past, no recent exaccerbations, no medications for asthma. no . 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 - boyfriend Hx Last Menstrual Period: 10/19/19 ?: No Onset/Duration: Sudden Onset - tuesday, Lasting Days, Still Present Severity Currently: Moderate Severity Initially: Moderate Pain Intensity: 8 Pain Scale Used: 0-10 Numeric Associated Signs & Symptoms: Positive: Fever - unknown, tactile, Cough, Sore Throat, Nasal Congestion, Headache - Allergy/Home Medications Allergies/Adverse Reactions: Allergies Allergy/AdvReac Type Severity Reaction Status Date / Time amoxicillin [From Augmentin] Allergy Rash Verified 10/24/19 16:03 clavulanic acid Allergy Rash Verified 10/24/19 16:03 [From Augmentin] codeine Allergy See Comment Verified 10/24/19 16:03 doxycycline Allergy GI Upset Verified 10/24/19 16:03 Estrogens Allergy See Comment Verified 10/24/19 16:03 ketorolac Allergy Facial Verified 10/24/19 16:03 Redness/Flushing hot sauce Allergy Severe "eats skin" Uncoded 10/24/19 16:03 SAUSAGE Allergy Severe THROAT Uncoded 10/24/19 16:03 FEELS LIKE IT CLOSES GENERIC CONDOM Allergy REDNESS/SWE Uncoded 10/24/19 16:03 LLING tape Allergy Blisters Uncoded 10/24/19 16:03 PMH/Surg Hx/FS Hx/Imm Hx Previously Healthy: Yes - mh Psychological History: Other Other History Of: Negative For: HIV, Hepatitis B, Hepatitis C, Anticoagulant Therapy - Surgical History Surgical History: Yes Surgery Procedure, Year, and Place: 13 surgeries melanoma scares biopsies;. left foot repairs - SCREWS. DENTAL - Family History Known Family History: Positive: Hypertension, Diabetes, Non-Contributory Negative: Cardiac Disease - Social History Alcohol Use: Rare Substance Use Type: None Smoking Status (MU): Heavy Every Day Tobacco Smoker Type: Cigarettes Amount Used/How Often: <1/2 PPD Length of Time of Smoking/Using Tobacco: Since Age 13 Have You Smoked in the Last Year: Yes Household Exposure Type: Cigarettes - Immunization History Most Recent Tetanus Shot: 01/15/13 Vaccination Up to Date: Yes Review of Systems All Other Systems Reviewed And Are Negative: Yes Constitutional: Positive: Fever, Chills, Fatigue ENT: Positive: Sore Throat, Nasal Discharge, Sinus Congestion, Sinus Pain/ Tenderness Respiratory: Positive: Shortness Of Breath, Cough Motor: Positive: Negative Neurovascular: Positive: Negative Musculoskeletal: Positive: Myalgia Neurological: Positive: Negative Is Patient Immunocompromised?: No Physical Exam Triage Information Reviewed: Yes Appearance: No Pain Distress, Well-Nourished, Ill-Appearing - mild Vital Signs: Initial Vital Signs Temp 97.9 F 10/24/19 16:04 Pulse 113 10/24/19 16:04 Resp 18 10/24/19 16:04 BP 103/65 10/24/19 16:04 Pulse Ox 98 10/24/19 16:04 Vital Signs Reviewed: Yes Eyes: Positive: Conjunctiva Inflamed - emoi ENT: Positive: Hearing grossly normal, Pharynx normal, TMs normal, Sinus tenderness - frontal mild. Negative: TM bulging, TM dull, TM red, Tonsillar swelling, Tonsillar exudate, Uvula midline Neck: Positive: Supple, No Lymphadenopathy, Tenderness @ - submand b/l Respiratory: Positive: Chest non-tender, Normal breath sounds, No respiratory distress, No accessory muscle use, Wheezing - RUL. Negative: Respiratory distress Cardiovascular: Positive: RRR, No Murmur Musculoskeletal: Positive: ROM Intact Psychological Exam: Normal Flu Course/Dx - Course Course Of Treatment: CXR- WNLs - Increase fluid intake to prevent mucous membranes from getting dry and increasing cough - Over the counter medications as needed for symptoms such as cough medication, motrin/ tylenol as needed for pain/ fever. - Tessalon perles as needed for cough - Albuterol inhaler as needed for cough, shortness of breath. - Differential Dx/Diagnosis Differential Diagnosis/HQI/PQRI: Broncholiolitis, RSV, Upper Respiratory Infection Provider Diagnosis: Viral URI Discharge ED - Sign-Out/Discharge Documenting (check all that apply): Patient Departure All imaging exams completed and their final reports reviewed: Yes - Discharge Plan Condition: Good Disposition: HOME Prescriptions: Albuterol HFA INHALER* [Ventolin HFA Inhaler*] 1 - 2 puff INH Q4H PRN #1 mdi PRN Reason: shortness of breath, cough Benzonatate CAP* [Tessalon 100 MG CAP*] 100 mg PO TID PRN #30 cap PRN Reason: Cough Patient Education Materials: Viral Syndrome (ED) Referrals: Brian Hsieh MD [Primary Care Provider] - Additional Instructions: - Increase fluid intake to prevent mucous membranes from getting dry and increasing cough - Over the counter medications as needed for symptoms such as cough medication, motrin/ tylenol as needed for pain/ fever. - Tessalon perles as needed for cough - Albuterol inhaler as needed for cough, shortness of breath. Mellowing Machine Operator: Sam Suarez F ([id number]) Flotation Tender: RAPHAEL ( RAPHAEL) Report Date: 10/24/2019 17:11:00 Report Status: Final ====== Start of Report Content Patient Name: MILAGRO BERMEO Medical Record#: [id number] Ordering Physician: Nadira SHARMA Acct.#: [id number] : 06/1990 Age: 29 Sex: F Location: [facility] Exam Date: 10/24/19 164 ADM Status: REG ER Order Information: CHEST PA LAT 2 VWS Accession Number: [id number] CPT: 30353 INDICATION: Right upper lobe wheezing and tobacco use, cough and fever. COMPARISON: Comparison is made with a prior study from November. TECHNIQUE: Dual-energy PA and lateral views of the chest were obtained. FINDINGS: The heart is within normal limits in size. Mediastinal and hilar contours appear within normal limits. The lungs are underinflated with more focal elevation of the left hemidiaphragm which is unchanged. The lungs are clear. No pleural effusion is seen. IMPRESSION: NO EVIDENCE FOR ACTIVE CARDIOPULMONARY DISEASE. <Electronically signed by Sam Suarez MD in OV> 10/24/191706 Dictated By: Sam Suarez MD Dictated Date/Time: 10/24/191705 Transcribed Date/Time: 10/24/191705 Copy to: CC:Nadira SHARMA; Brian Hsieh MD; Reynaldo Sanders MD Imaging - [facility] [place] [address] [address] ph [phone]) ph ) ph [phone]) End of Report Content - Billing Disposition and Condition Condition: GOOD Disposition: Home
== END 2019-10-24 17:25 | disposition home or self-care (01) ==
LOC: UCCORT 15:17
DX: J06.9 Acute upper respiratory infection, unspecified (principal); F17.210 Nicotine dependence, cigarettes, uncomplicated; Z88.0 Allergy status to penicillin; Z88.1 Allergy status to other antibiotic agents; Z88.5 Allergy status to narcotic agent; Z88.8 Allergy status to other drugs, medicaments and biological substances; Z91.09 Other allergy status, other than to drugs and biological substances; Z91.018 Allergy to other foods
CPT/HCPCS: 71046; 87651; 99212; G0463